=== PATIENT | female | born 1995 | race Caucasian/White ===

== ENCOUNTER 2024-04-05 20:25 | Observation (INO) | payer OTHER, SELFPAY ==
[2024-04-05 20:31] VITALS: BP 137/71; PULSE 100; RESP 20; TEMP 36.9; O2SAT 99; BMI 20.4
--- NOTE | 2024-04-05 20:33 | ED_ITS ---
HPI - General Adult General Time Seen by Provider: 20:33 Date Seen: 04/05/24 Chief complaint: Abdominal Pain Stated complaint: Abdominal pain Time Seen by Provider: 04/05/24 20:26 Source: patient and RN notes reviewed Mode of arrival: ambulatory Limitations: no limitations History of Present Illness HPI narrative: This 28-year-old female is ambulatory into the ED accompanied by her mom with sudden onset of severe upper abdominal pain, is radiating around the abdomen into her back. She had soup tonight for dinner, went for a walk with a dogs, went to lay on the floor afterwards and had excruciating pain developed. She feels nauseated, pain is coming in waves. Pain just started within the last hour. She has had no prior abdominal surgeries. She is on oral contraceptives. There is family history of gallbladder disease but no family history of kidney stones. Patient has had no prior history of kidney stones or abdominal issues. 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 Pain is significant. No associated urinary or diarrheal symptoms at this time. Had softer stool before this started. Will usually have softer stools baseline, usually goes daily. Related Data Home Medications ?Medication ?Instructions ?Recorded ?Confirmed bupropion HCl 150 mg 24 hr tablet, 150 mg PO DAILY 06/18/23 06/18/23 extended release escitalopram oxalate 10 mg tablet 10 mg PO DAILY 06/18/23 04/05/24 norethindrone 1.5 mg-ethinyl 1 tab PO DAILY 06/18/23 04/05/24 estradiol 30 mcg(21)/iron 75 mg(7) tablet (Patricia Fe 1.5/30 (28)) escitalopram oxalate 5 mg tablet 5 mg PO DAILY 04/05/24 04/05/24 Allergies Allergy/AdvReac Type Severity Reaction Status Date / Time oxycodone (From Percocet) AdvReac Intermediate Nausea/Vomi Verified 04/05/24 20:34 ting Review of Systems Status of ROS: Reports: 6 or more systems reviewed and unremarkable except as noted in History and below PFSH PFSH Social History Smoking Status: Never smoker Do you use any of these nicotine containing products: None How often do you have a drink containing alcohol: never How often do you have six or more drinks on one occasion: Never AUDIT-C Alcohol total score: 0 Non-prescribed substance use: denies use Exam Const: Vital Signs, click to edit/add: Vital Signs - 24 hr 04/05/24 20:31 04/05/24 20:37 04/05/24 23:58 Temperature 98.5 F 98.5 F Pulse Rate [Right Pulse Oximeter] 100 89 Respiratory Rate 20 20 Blood Pressure [Ri ght Upper Arm] 137/71 123/74 Pulse Oximetry 99 99 99 Oxygen Delivery Me thod Room Air Room Air This 28-year-old female is alert and interactive, in obvious discomfort but still very pleasant. Sclera clear, symmetrical facial function. Lungs clear, good air entry, no wheezing or crackles. CV slightly fast regular, no murmur, normal S1-S2, no S3-S4. Abdomen is soft, nondistended, no rebound or guarding, mild epigastric discomfort. Bowel sounds are present, do not feel any masses or organomegaly. Documenting provider has reviewed patient's vital signs: yes Course Course ED Course: We will try a some IV Toradol to see if that is sufficient for pain management, she has had nausea and vomiting with oxycodone. Will give her 4 mg IV Zofran for nausea control. Will look at a right upper quadrant ultrasound to see if this is biliary in nature. Will get CBC, comprehensive metabolic panel, lactate and lipase to look for underlying bowel pathology. Will out pancreatitis, biliary disease, urinary pathology, bowel pathology. If right upper quadrant ultrasound is not showing any etiology and evaluation warrants, they understand that we may need CT imaging of her abdomen. Reevaluation(s) Time of Reevaluation #1: 21:06 Reevaluation #1: Lactate mildly elevated at 2.9. Have ordered 500 mL normal saline for patient. Patient is going to ultrasound, pain is better at this time, she is not sure if she is on the down slope of a pain wave or if meds have started to work. Time of Reevaluation #2: 22:44 Reevaluation #2: Patient is having waves of pain come but it is certainly not as intense, feels the medication has helped. It is still in the epigastric area and goes up under ribs on both sides. We reviewed her ultrasound, there might be a gallbladder polyp verses some biliary sludge but her labs are otherwise normal. We do have CT imaging pending, await Radiology read to ensure we are not missing anything else. Time of Reevaluation #3: 23:30 Reevaluation #3: Have reviewed CT report, hepatomegaly but otherwise no acute pathology. Patient is on her knees, leaning forward, having severe abdominal pain again. She is requesting further pain management. Will try fentanyl and see if she tolerates this better. We will repeat a lactate to ensure that this is not going up. We really do not have causative etiology for her pain. She does state that the pain is in the epigastric area, radiates under her ribs and she is feeling it in her right shoulder blade now. Patient has had abdominal pain for about 4 hours or more now, do not have a definitive etiology and do not have pain controlled. She does have hepatomegaly but has normal labs. Additional Reevaluation(s): 12:05 a.m.: Penny is still having discomfort, improved over baseline but still does feel some significant pain, we discussed given another 25 mcg of fentanyl as she seems to have tolerated this. Consultations Consultation #1: Reviewed case with our surgeon on-call Dr. Marcus. She finds the hepatomegaly interesting in this slender patient, agrees that she is not convinced that this is biliary in nature. Have discussed my concern of pain out of proportion to exam, no identifiable etiology. Appendix was normal on her CT imaging as she specifically did ask me that. My a inclination is to have this patient stay for observation, can work on pain management and she can be followed clinically. Surgery can see her tomorrow if ongoing symptoms. Time: 23:34 Consultation #2: Paged night hospitalist service. 00:[address] Sorensen the hospitalist, accepts patient. Time: 00:06 Vital Signs Vital signs: Initial Vital Signs Temperature 98.5 F 04/05/24 20:31 Temperature Source Temporal Artery Scan 04/05/24 20:31 Pulse Rate 100 04/05/24 20:31 Respiratory Rate 20 04/05/24 20:31 Blood Pressure 137/71 04/05/24 20:31 Blood Pressure Mean 93 04/05/24 20:31 Blood Pressure Position Sitting 04/05/24 20:31 Pulse Oximetry 99 04/05/24 20:31 Oxygen Delivery Method Room Air 04/05/24 20:31 Vital Signs Temperature 98.5 F 04/05/24 20:31 Pulse Rate 100 04/05/24 20:31 Respiratory Rate 20 04/05/24 20:31 Blood Pressure 137/71 04/05/24 20:31 Pulse Oximetry 99 04/05/24 20:31 Oxygen Delivery Method Room Air 04/05/24 20:31 Temperature 98.5 F 04/05/24 23:58 Pulse Rate 89 04/05/24 23:58 Respiratory Rate 20 04/05/24 23:58 Blood Pressure 123/74 04/05/24 23:58 Pulse Oximetry 99 04/05/24 23:58 Oxygen Delivery Method Room Air 04/05/24 23:58 Medications Administered Medications: Discontinued Medications Generic Name Dose Route Start Last Admin Trade Name Anahi PRN Reason Stop Dose Admin Fentanyl 25 mcg 04/05/24 23:29 04/05/24 23:38 Fentanyl 100 Mcg/2 Ml Inj IVP 04/05/24 23:30 25 mcg ONCE ONE Administration Sodium Chloride 500 mls @ 500 mls/hr 04/05/24 21:06 04/05/24 22:10 0.9 % Sodium Chloride 500 Ml IV 04/05/24 22:05 Infused .Q1H ONE Infusion Ketorolac Tromethamine 15 mg 04/05/24 20:37 04/05/24 20:55 Ketorolac 15 Mg/Ml Inj IVP 04/05/24 20:38 15 mg ONCE ONE Administration Ondansetron HCl 4 mg 04/05/24 20:37 04/05/24 20:56 Ondansetron 2 Mg/Ml Inj IVP 04/05/24 20:38 4 mg ONCE ONE Administration Potassium Bicarbonate 25 meq 04/05/24 23:29 04/05/24 23:39 Potassium Bicarb 25 Meq Effervescent Tab PO 04/05/24 23:30 25 meq ONCE ONE Administration Medical Decision Making Lab Data Lab results reviewed: Yes I reviewed the patient's lab results Labs: Lab Results 04/05/24 04/05/24 Range/Units 20:56 23:30 WBC 9.38 (4.50-11.00) K/uL RBC 4.29 (4.00-5.20) m/uL Hgb 12.8 (12.0-16.0) gm/dL Hct 39.1 (33.0-51.0) % MCV 91 (80-100) fL MCH 30 (26-34) pg MCHC 33 (32-36) gm/dL RDW Coeff of Latasha 11.9 (11.5-15.5) % Plt Count 264 (140-440) K/uL Neut % (Auto) 48.4 (42.0-72.0) % Lymph % (Auto) 44.1 H (20-44) % Pope % (Auto) 6.6 (0.0-11.0) % Eos % (Auto) 0.5 (0.0-7.0) % Baso % (Auto) 0.3 (0.0-3.0) % Neut # (Auto) 4.53 (1.7-7.0) K/uL Lymph # (Auto) 4.10 H (0.90-2.90) K/uL Pope # (Auto) 0.60 (0.00-0.90) K/UL Eos # (Auto) 0.05 (0.00-0.50) K/uL Baso # (Auto) 0.03 (0.00-0.30) K/uL Abs Immat Gran (auto) 0.01 (0.00-0.30) K/uL Imm/Tot Granulo (auto) 0.1 % Sodium 136 (135-149) mmol/L Potassium 3.2 L (3.6-5.1) mmol/L Chloride 104 (96-114) mmol/L Carbon Dioxide 22 (20-32) mmol/L Anion Gap 10 (7-15) mEq/L BUN 6 (5-24) mg/dL Creatinine 0.6 (0.5-1.5) mg/dL Estimated Creat Clear 132.27 Estimated GFR 127 ml/min Glucose 123 H (60-115) mg/dL Lactate 2.9 H 0.7 (0.5-1.9) mmol/L Calcium 9.5 (8.4-10.6) mg/dL Total Bilirubin < 0.1 L (0.1-1.5) mg/dL Direct Bilirubin 0.0 (0.0-0.5) mg/dL AST 24 (12-35) U/L ALT 13 (4-35) U/L Alkaline Phosphatase 50 (40-150) U/L C-Reactive Protein 0.7 (0.5-1.0) mg/dL Total Protein 7.4 (6.0-8.3) g/dL Albumin 4.4 (3.3-5.0) g/dL Lipase 90 (23-300) U/L Urine Color Yellow (Yellow) Urine Appearance Clear (Clear) Urine pH >= 9.0 H (5.0-8.5) Ur Specific Kittrell 1.015 (1.000-1.030) Urine Protein 2+ A (Negative) Urine Glucose (UA) Negative (Negative) Urine Ketones Negative (Negative) Urine Blood Negative (Negative) Urine Nitrite Negative (Negative) Urine Bilirubin Negative (Negative) Urine Urobilinogen 0.2 (0.2-1.0) Ur Leukocyte Esterase Negative (Negative) Urine RBC 0-2 (0-2) Urine WBC 0-2 (0-5) Ur Squamous Epith Cells Few (None-Few) Urine Bacteria None (None) Imaging Data US - abdomen: Attestation: I have reviewed the pertinent imaging results. Radiologist's impression: Patient: PENNY LORA Facility:?[facility] Patient ID:?[id number] Site Patient ID:?[id number]. Site :?[id number] Study:?US-Abdomen ABD LIMITED [facility]-04/05/2024 9:33:10 PM Ordering Physician:Missy Ford Final Report: INDICATION: Right upper quadrant abdominal pain. TECHNIQUE: Ultrasound abdomen limited. Sonographic images of the right upper quadrant were obtained using arredondo-scale and color Doppler images. COMPARISON: None. FINDINGS: Liver: Normal in size and echotexture. No suspicious masses. No intrahepatic biliary ductal dilatation. Gallbladder: Focal area of echogenicity along the gallbladder wall. No stones. Normal wall thickness. No pericholecystic fluid. Negative sonographic Stone`s sign. Common bile duct: 3 mm. Pancreas: Unremarkable. Right kidney: Normal in size. Normal echotexture and cortex. No suspicious masses or hydronephrosis. Vasculature: Proximal abdominal aorta and IVC are unremarkable. IMPRESSION: 1. Focal area of echogenicity along the gallbladder wall, which may represent a small polyp versus tumefactive sludge. 2. Otherwise unremarkable right upper quadrant ultrasound. Dictated by Oli Bagley MD @ 04/05/2024 10:04:36 PM (Electronic Signature) CT scan - abdomen: Attestation: I have reviewed the pertinent imaging results. Radiologist's impression: Patient: PENNY LORA Facility:?[facility] Patient ID:?[id number] Site Patient ID:?[id number]. Site :?1995 Study:?CT-Abdomen/Pelvis W ISOVUE 370-04/05/2024 10:44:04 PM Ordering Physician:Missy Ford Final Report: INDICATION: Severe upper abdominal pain. TECHNIQUE: CT abdomen and pelvis acquired with 64 cc Isovue 370 IV contrast. COMPARISON: Limited abdominal ultrasound 04/05/2024. FINDINGS: Lower chest: Unremarkable. Liver: Enlarged liver. No suspicious masses. Gallbladder and bile ducts: Unremarkable. No stones or inflammation. No biliary ductal dilatation. Spleen: Unremarkable. Normal in size. No masses. Adrenal glands: Unremarkable. No nodules. Pancreas: Unremarkable. No mass or inflammation. Kidneys: Unremarkable. No suspicious masses, stones, or hydronephrosis. GI tract: Unremarkable. Normal in caliber. No evidence of obstruction. Normal appendix. Lymph nodes: No lymphadenopathy. Vasculature: Unremarkable. Omentum/Peritoneum/Abdominal Wall: Unremarkable. No free air or significant free fluid. Pelvis: Unremarkable. Bones: Unremarkable for age. IMPRESSION: 1. Hepatomegaly. 2. Otherwise no acute abdominal or pelvic abnormality. Please note that all CT scans at this facility use dose modulation, iterative reconstruction, and/or weight-based dosing when appropriate to reduce radiation dose to as low as reasonably achievable. Dictated by Oli Bagley MD @ 04/05/2024 11:12:59 PM (Electronic Signature) Discharge Plan Discharge Clinical Impression: Abdominal pain, epigastric
[2024-04-05 20:37] VITALS: O2SAT 99
--- NOTE | 2024-04-05 20:38 | CRLHL7_ITS ---
For Patients: As a result of the Century Cures Act, medical imaging exams and procedure reports are released immediately into your electronic medical record. You may view this report before your referring provider. If you have questions, please contact your health care provider. INDICATION: Right upper quadrant abdominal pain. TECHNIQUE: Ultrasound abdomen limited. Sonographic images of the right upper quadrant were obtained using arredondo-scale and color Doppler images. COMPARISON: None. FINDINGS: Liver: Normal in size and echotexture. No suspicious masses. No intrahepatic biliary ductal dilatation. Gallbladder: Focal area of echogenicity along the gallbladder wall. No stones. Normal wall thickness. No pericholecystic fluid. Negative sonographic Stone`s sign. Common bile duct: 3 mm. Pancreas: Unremarkable. Right kidney: Normal in size. Normal echotexture and cortex. No suspicious masses or hydronephrosis. Vasculature: Proximal abdominal aorta and IVC are unremarkable. IMPRESSION: 1. Focal area of echogenicity along the gallbladder wall, which may represent a small polyp versus tumefactive sludge. 2. Otherwise unremarkable right upper quadrant ultrasound. Dictated by Oli Bagley MD @ 04/05/2024 10:04:36 PM (Electronically Signed)
--- OUTSIDE RECORDS SUMMARY | 2024-04-05 20:45 | XMS_ITS | Continuity of Care Document ---
Author Organization [facility] Address [address] [address] [place] [address] Phone Care Team Providers Care Stock Tracer Name Role Phone Jerome MATHEWS, Magalie Unavailable Unavailable Medications Medication Instructions Dosage Effective Dates (start - stop) Status Comments omeprazole 40 mg capsule,delayed release take 1 capsule (40MG) by oral route every day before a meal 40 MG - Active Probiotic Colon Care 1.5 billion cell capsule take 1 capsule o by oral route every day - Active Veltin 1.2 %-0.025 % Topical Gel apply by topical route every day to the affected area(s) at bedtime 0.00 - Active Procedures Procedure Date Offic Cons New/estab Mod Routine Serum Collection Bld Ct; Hg/pltlt Ct Auto/compl 13 Sed Rate, Erythrocyte; Auto C-reactive Prot Comp Metabolic Panel Iron Iron Binding Capacity Ferritin Results Test Name Date and Time Measure Units Reference Range Abnormal Flag Status Commen ts Panel Description: Calprotectin, Fecal Final Calprotectin, Fecal 40 Final *Date Ordered 01/05/2013 Final Advance Directives Directive Yes / No Effective Date File Name No Information Encounters Encounter Description Practice Location Reason(s) For Visit Diagnoses Date Provider Providers Copied on Encounter [facility], [address] [address], [place], [place], [id number], [place] tel:[phone] [facility] No Information Jan-0 3 Jerome Mejias. [address] [facility] [address], [place], [place], [id number] , [place]. tel:[phone] Offic Cons New/estab Mod [facility], [address] [address], [place], [place], [id number], [place] [phone] [facility] Nausea (chief complaint) Abdominal pain (chief complaint) Nausea AlonePeriumbilic Pain 3 Jerome Mejias. [address] [facility] [address], [place], [place], [id number] , [place]. [phone] Referring Provider: Willa Layton [facility], [address] [place] [address], [place], [address]. tel:[phone] Family History Family Member Type Diagnosis Age At Onset First degree family history Problem (finding) No history of Colon Rectal Cancer First degree family history Problem (finding) No Family history of No history of Colon Polyps First degree family history Problem (finding) No history of Ulcerative Colitis First degree family history Problem (finding) No history of Crohn's Payers Payer name Insurance type Covered constitution party ID Authoriza tion(s) Blue Cross Of [facility] [id number] Social History Type Description Quantity Date Captured Comments Sex Female Smoking Status No Information Chief Complaint And Reason For Visit No Information Reason For Referral Reason For Referral No Information History Of Present Illness Encounter Date Complaint History Of Prese nt Illness No Information Functional Status Date Functional Assessmen t No Information Instructions Date Instruction Additional Infor mation No Information Assessments Type Assessment Date No Information Patient Care Teams Name Effective Dates (start - stop) Status Members No Information
--- OUTSIDE RECORDS SUMMARY | 2024-04-05 20:45 | XMS_ITS | Continuity of Care Document ---
Author Organization [facility] Address [address] [address] [place] [address] Phone Care Team Providers Care Window Sash Installer Name Role Phone Jerome MATHEWS, Magalie Unavailable [...] Encounter [facility], [address] [address], [place], [place], [id number], [place] tel:[phone] Pediatric [facility] No Information Jan-0 3 Jerome Mejias. [address] [facility] [address], [place], [place], [id number] , [place]. [phone] Offic Cons New/estab Mod [facility], [address] [address], [place], [place], [id number], [place] [phone] Pediatric [facility] Nausea (chief complaint) Abdominal pain (chief complaint) Nausea AlonePeriumbilic Pain 3 Jerome Mejias. [address] [facility] [address], [place], [place], [id number] , [place]. [phone] Referring Provider: Willa Layton [facility], [address] [place] [address], [place], [address]. tel:[phone] Family History Family Member Type Diagnosis Age At Onset First degree family history Problem (finding) No history of Colon Rectal Cancer First degree family history Problem (finding) No Family history of No history of Colon Polyps First degree family history Problem (finding) No history of Ulcerative Colitis First degree family history Problem (finding) No history of Crohn's Payers Payer name Insurance type Covered green party ID Authoriza tion(s) Blue Cross Of [facility] [id number] Social History Type Description Quantity Date Captured [...]
--- OUTSIDE RECORDS SUMMARY | 2024-04-05 20:45 | XMS_ITS | Clinical Summary ---
Author Organization [facility] Address [place], [place] [address] Care Team Providers Care Jumpbasting Collar Baster Name Role Phone Juanita Hodges NP Primary Care Provider [phone] Allergies Active Allergy Reactions Criticality Noted Date Comments Bupropion Hives 06/17/2023 Venlafaxine Hallucinations 10/07/2023 Oxycodone-Acetaminophen Vomiting 07/18/2020 Medications Medication Sig Dispensed Refills Start Date End Date Status escitalopram oxalate (LEXAPRO) 5 mg tabletIndications:Anx iety and depression TAKE 1 TABLET BY MOUTH EVERY DAY WITH 10 MG FOR TOTAL OF 15 MG DAILY 90 Tablet 3 10/16/2023 Active escitalopram oxalate (LEXAPRO) 10 mg tabletIndications:Anx iety and depression TAKE 1 TABLET BY MOUTH DAILY WITH 5 MG FOR A TOTAL OF 15 MG DAILY 90 Tablet 3 10/16/2023 Active norethindrone-e.estra diol-iron (MIKI FE 1.5/30, 28, ORAL) Active Active Problems Problem Noted Date Diagnosed Date Pap smear for cervical cancer screening 08/29/19 23 Overview (08/28/2022): 07/2022 NIL Plan: Pap/HPV due 07/2025 Anxiety state, unspecified 12/28/2008 Encounters Date Type Department Care Team Description 03/01/[place] [facility] [place] [address] [place] [address] Thanh Medina MD Surgery Scheduled 02/26/2024 [place] [facility] [place] [address] [place] [address] Thanh Medina MD Questions 02/20/2024 3:30 PM CDT Office Visit [facility] [address] [place] [phone] Thanh Medina MD Throat Problem (Tonsillitis issues ongoing since Jun, no strep. Sore throat. ) 02/20/2024 Travel 02/17/2024 Travel 01/21/2024 2:50 PM CDT Office Visit [facility] [address] [place] [address] Katherine Pack DO Pharyngitis (Ongoing tonsillitis and strep for 7 months.); Fatigue (Ongoing fatigue for 1 year, determined it is not related to lexapro, would like thyroid testing due to genetic factors) 01/21/2024 Travel 01/13/2024 8:05 AM CDT Office Visit [facility] [address] [facility] [address] [place] [address] Jennifer Arango MD Throat Problem (Sore throat and painful tonsils since 01/09) 01/13/2024 Travel 01/11/2024 12:30 PM CDT Office Visit [facility] [address] [place] [address] Belgica Wade MD Pharyngitis (Sore throat started last night with sinus pressure, body aches, and painful swallowing. Denies other symptoms or concerns.) 01/11/2024 Travel 01/07/2024 9:35 AM CDT E-Visit [facility] [address] [place] [phone] Juanita Hodges, [employer] eVisit for Vaginal Discharge / Irritation from Last 3 Months Immunizations Name Administration Dates Next Due AMB Influenza, IIV4 PF (=>6 mos Flulaval,Fluzone Fluarix)(Flu Clinic Only) 02/23/2020 COVID-19 vaccine (Moderna 100mcg/0.5mL) PF, MDV 09/13/2020,08/16/2020 DTaP 12/13/2002, 9,04/17/1998,02/01,1997 HIB-HepB (Comvax) 09/04/1998,02/01/1998,10/17/18 98 HPV 9 (Gardasil 9) 10/08/2016,05/07/2016, 016 Hep A, Ped/adol, 3 Dose 06/23/2003,12/13/2002 Hep B (Hepatitis B (Adult) R ecombinant Adjuvanted) 01/01/2024 Hepatitis A (Peds) 06/23/2003,12/13/2002 INFLUENZA, IIV3 PF (AGE >= 6 MO) 01/01/2024,1006/2011,01/30/2009 Inactivated Polio Vaccine 12/13/2002,02/01/1998, 1997 Influenza, IIV3 (Age >=3 years) 02/09/2015 Influenza, IIV4 02/13/2021,04/20/2019 Influenza, IIV4 (=>6mos) MDV 02/18/2018,02/14/20 17 Influenza,CCIIV4 PRESERV FREE 03/15/2023, 022 MENINGOCOCCAL VACCINE 2 VIAL 2MO-55YO (MENVEO) 05/07/2016 MMR 12/13/2002,03/05/1999 Meningococcal Vaccine (Menactra) 12/06/2008 Oral Polio Vaccine 03/05/1999 Td (Age >=7 Years) 05/13/2019 Tdap 09/04/2018,12/06/2008 Typhoid (injectable) 06/29/2007 Varicella Vaccine 06/29/2007,09/04/1998 Family History Medical History Relation Name Comments Hypothyroidism Maternal Grandmother Depression Mother Hypothyroidism Mother Depression Sister Relation Name Status Comments Father Alive Maternal Grandmother Mother Alive Sister Alive Social History Tobacco Use Types Packs/Day Years Used Date Smoking Tobacco: Never Smokeless Tobacco: Never Tobacco Cessation:Counseling Given: Yes Alcohol Use Standard Drinks/Week Comments Yes 1 (1 standard drink = 0.6 oz pur e alcohol) once in a while Humiliation, Afraid, Rape, and Kick questionnair e Answer Date Recorded Fear of Current or Ex-Partner No Emotionally Abused No 05/13/2019 Physically Abused No 05/13/2019 Sexually Abused No 05/13/2019 PHQ-2 Answer Date Recorded PHQ-2 TOTAL SCORE 1 10/16/2023 Social Connections Answer Date Recorded Do you often feel lonely or isolated from those around you? 0 10/07/2023 Financial Resource Strain Answer Date R ecorded Difficulty of Paying Living Expenses 3 10/07/2023 Difficulty of Paying Living Expenses Not on file 10/07/2023 Food Insecurity Answer Date Recorded Do you worry your food will run out before you are able to buy more? 1 10/07/2023 Transportation Needs Answer Date Record ed Does lack of transportation keep you from medica l appointments? 1 10/07/2023 Does lack of transportation keep you from work, meetings or getting things that you need? 1 10/07/2023 Housing Stability Answer Date Recorded What is your housing situation today? 1 10/07/2023 Sex and Gender Information Value Date Recorded Sex Assigned at Female 10/09/2020 9:22 AM CDT Gender Identity Not on file Sexual Orientation Not on file Obstetrics History Para Term AB IAB SAB Ectopic Multiple Livin g Live Births 0 0 0 0 0 0 0 0 0 0 0 Last Filed Vital Signs Vital Sign Reading Time Taken Comments Blood Pressure 108/72 01/21/2024 2:51 PM CDT Pulse 75 01/21/2024 2:51 PM CDT Temperature 37.3 C (99.1 F) 01/21/2024 2:51 PM CDT Respiratory Rate 18 01/13/2024 8:09 AM CDT Oxygen Saturation 98% 01/21/2024 2:51 PM CDT Inhaled Oxygen Concentration - - Weight 62.6 kg (138 lb) 01/21/2024 2:51 PM CDT Height 169.3 cm (5' 6.65) 08/02/2022 7:15 AM CD T Body Mass Index 21.84 08/02/2022 7:15 AM CDT Plan of Treatment Upcoming Encounters Date Type Department Care Team (Latest Contact Info) Description 05/18/2024 8:20 AM CODING QUALITY COORDINATOR Preop Visit [facility] [address] [place] [phone] Juanita Hodges NP [address] [place] [address] 05/27/2024 8:08 AM CODING QUALITY COORDINATOR Hospital Encounter [address] [address] Thanh Medina MD [address] [place] [address] 05/27/2024 8:08 AM CODING QUALITY COORDINATOR - 05/27/2024 9:04 AM CODING QUALITY COORDINATOR Surgery [address] [address] Thanh Medina MD [address] [place] [address] TONSILLECTOMY [address] Scheduled Procedures Name Priority Associated Diagnoses Date/Ti me TONSILLECTOMY Elective Recurrent streptococcal pharyngitis 05/27/2024 8:08 AM CODING QUALITY COORDINATOR Health Maintenance Due Date Last Done Comments HIV for age 15-65 2012 Hepatitis C screening for age 18-79 09/03/2015 BMI (ht and wt on same day) for age 18+ 08/03/2023 08/02/2022, 01/01/2021, 11/27/2020, Additional history exists Influenza for age 9-49 01/11/2024 , 03/15/2023, 03/03/2022, Additional history exists Depression screening for age 12+ 10/15/2024 10/16/2023, 10/16/2023, 06/24/2023, Additional history exists Pap test for age 21-65 08/02/2025 08/02/2022, 2019 Tetanus booster 05/13/2029 05/13/2019, 04/10/2018, 12/06/2008 HPV series for age 9-26 Completed 10/09/19 17, 05/07/2016, 01/08/2016 Tdap Completed 09/04/2018, 12/06/2008 COVID-19 vaccine series Completed 02/18/20 24, 03/15/2023, 03/03/2022, Additional history exists Pneumococcal series for age 6-64 Aged Out No longer eligible based on patient's age to complete this topic Procedures Procedure Name Priority Date/Time Associated Diagnosis Comments FERRITIN Routine 01/21/2024 3:21 PM CDT Fatigue, unspecified type Vegetarian diet VITAMIN B12 Routine 01/21/2024 3:21 PM CDT Fatigue, unspecified type Vegetarian diet TSH WITH REFLEX Routine 01/21/2024 3:21 PM CDT Fatigue, unspecified type STREP A PCR Routine 01/13/2024 9:27 AM CDT Sore throat CBC WITH AUTO DIFFERENTIAL STAT 01/13/2024 8:30 AM CDT Sore throat CBC WITH AUTO DIFFERENTIAL STAT 01/13/2024 8:30 AM CDT Sore throat HETEROPHILE STAT 01/13/2024 8:30 AM CDT Sore throat THROAT RAPID STREP ONLY CLINIC STAT 01/13/2024 8:06 AM CDT Sore throat CREATININE,ISTAT STAT 01/11/2024 1:2 9 PM CDT Sore throat COVID-19 MOLECULAR Routine 01/11/2024 1 :09 PM CDT Sore throat THROAT RAPID STREP ONLY CLINIC Routine 01/11/2024 12:40 PM CDT Sore throat LAYOUT ARTIST THIN PREP PAP SCREEN IMAGED Routine 08/02/2022 7:20 AM CDT Pap smear for cervical cancer screening from Last 3 Months or Most Recently Relevant to Health Maintenance Results * TSH WITH REFLEX (01/21/2024 3:21 PM CDT) TSH 1.38 0.27 - 4.20 uIU/mL 01/22/2024 7:07 AM CDT [facility] Blood BLOOD SPECIMEN / Unknown Venipuncture / Unknown 01/21/2024 3:21 PM CDT 01/21/2024 3:21 PM CDT [facility] - 01/22/2024 7:07 AM CDT In Adults, TSH values between 5.00 and 10.00 uIU/ml do not necessarily indicate the presence of Hypothyroidism. Correlation with clinical findings such as presence of goiter and/or Thyroperoxidase (TPO) Antibody may be helpful. For more information please refer to INDIRA 2004; 291: 228-238. Katherine Pack DO CHEMISTRY Performing Organization Address City/[facility]/ZIP Co de Phone Number [facility] [address] [place] [address], * FERRITIN (01/21/2024 3:21 PM CDT) FERRITIN 78.4 15.0 - 150.0 ng/mL 01/22/2024 7:07 AM CDT [facility] Blood BLOOD SPECIMEN / Unknown Venipuncture / Unknown 01/21/2024 3:21 PM CDT 01/21/2024 3:21 PM CDT Katherine Pack DO CHEMISTRY [facility] [address] [place] [address], * VITAMIN B12 (01/21/2024 3:21 PM CDT) VITAMIN B12 367 232 - 1,245 pg/mL 01/22/2024 7:07 AM CDT [facility] Blood BLOOD SPECIMEN / Unknown Venipuncture / Unknown 01/21/2024 3:21 PM CDT 01/21/2024 3:21 PM CDT Narrative [facility] - 01/22/2024 7:07 AM CDT Biotin supplements may cause clinically significant interference for this test assay. If interference is suspected, it is strongly recommended that biotin is discontinued for at least one week prior to retesting. Katherine Pack DO CHEMISTRY Performing Organization Address City/[facility]/ZIP Co de Phone Number [facility] [address] [address], * STREP A PCR (01/13/2024 9:27 AM CDT) [facility] A STREP Negative 01/13/2024 5:07 PM CDT [facility] Throat SPECIMEN FROM THROAT / Unknown Non-Blood / Unknown 01/13/2024 9:27 AM CDT 01/13/2024 9:27 AM CDT Jennifer Mendez MD [facility] OBIOLOGY Performing Organization Address [facility]/ZIP Co de Phone Number [facility] [address] [place] [address], [place] * (ABNORMAL) CBC WITH AUTO DIFFERENTIAL (01/13/2024 8:30 AM CDT) [facility] WHITE BLOOD COUNT 18.1(H) 4.5 - 11.0 thou/cu mm 01/13/2024 8:48 AM CDT [facility] RED BLOOD COUNT 3.98(L) 4.00 - 5.20 mil/cu mm 01/13/2024 8:48 AM CDT [facility] HEMOGLOBIN 12.3 12.0 - 16.0 g/dL 01/13/2024 8:48 AM CDT [facility] HEMATOCRIT 36.6 33.0 - 51.0 % 01/13/2024 8:48 AM CDT [facility] MCV 92 80 - 100 fL 01/13/2024 8:48 AM CDT [facility] MCH 30.9 26.0 - 34.0 pg 01/13/2024 8:48 AM CDT [facility] MCHC 33.6 32.0 - 36.0 g/dL 01/13/2024 8:48 AM CDT [facility] RDW 12.7 11.5 - 15.5 % 01/13/2024 8:48 AM CDT [facility] PLATELET COUNT 218 140 - 440 thou/cu mm 01/13/2024 8:48 AM CDT [facility] MPV 10.0 6.5 - 11.0 fL 01/13/2024 8:48 AM CDT [facility] % NEUT 85.0 % 01/13/2024 8:48 AM CDT [facility] % LYMPH 8.5 % 01/13/2024 8:48 AM CDT [facility] % MONO 6.3 % 01/13/2024 8:48 AM CDT [facility] % EOS 0.1 % 01/13/2024 8:48 AM CDT [facility] % BASO 0.1 % 01/13/2024 8:48 AM CDT [facility] ABSOLUTE NEUTROPHILS 15.4(H) 1.7 - 7.0 thou/cu mm 01/13/2024 8:48 AM CDT [facility] ABSOLUTE LYMPHOCYTES 1.5 0.9 - 2.9 thou/cu mm 01/13/2024 8:48 AM CDT [facility] ABSOLUTE MONOCYTES 1.1(H) <0.9 thou/cu mm 01/13/2024 8:48 AM CDT [facility] ABSOLUTE EOSINOPHILS 0.0 <0.5 thou/cu mm 01/13/2024 8:48 AM CDT [facility] ABSOLUTE BASOPHILS 0.0 <0.3 thou/cu mm 01/13/2024 8:48 AM CDT [facility] Blood BLOOD SPECIMEN / Unknown Venipuncture / Unknown 01/13/2024 8:30 AM CDT 01/13/2024 8:37 AM CDT Jennifer PANDA [address] [address] * HETEROPHILE (01/13/2024 8:30 AM CDT) HETEROPHILE Negative Negative 01/13/2024 8:47 AM CDT [facility] Blood BLOOD SPECIMEN / Unknown Venipuncture / Unknown 01/13/2024 8:30 AM CDT 01/13/2024 8:37 AM CDT Jennifer PANDA Performing Organization Address City/[facility]/ZIP Co de Phone Number [address] [address] * THROAT RAPID STREP ONLY CLINIC [63[address].0] - age 18+ (01/13/2024 8:06 AM CDT) Only the most recent of2 resultswithin the time period is included. THROAT RAPID STREP A ANTIGEN Negative 01/13/2024 8:23 AM CDT [facility] Throat SPECIMEN FROM THROAT / Unknown Non-Blood / Unknown 01/13/2024 8:06 AM CDT 01/13/2024 8:13 AM CDT Casey Barrios MD MICROBIOLOGY [address] [address] * CREATININE,ISTAT (01/11/2024 1:29 PM CDT) CREATININE, POCT 0.60 0.57 - 1.11 mg/dL 01/11/2024 1:31 PM CDT [facility] eGFR >90 >90 mL/min/1.7 3m2 01/11/2024 1:31 PM CDT [facility] Comment:As of 2021, eG FR is calculated by the CKD-EPI creatinine equation without race adjustment. eGFR can be influenced by muscle mass, exercise, and diet. The reported eGFR is an estimation only and is only applicable if the renal function is stable. Blood BLOOD SPECIMEN / Unknown 01/11/2024 1:29 PM CDT 01/11/2024 1:31 PM CDT Belgica Wade MD CHEMISTRY Performing Organization Address City/[facility]/ZIP Co de Phone Number [facility] [address] [place] [address] * COVID-19 MOLECULAR (01/11/2024 1:09 PM CDT) Pathologist [facility] COVID 19 [facility] MOLECULAR Negative Negative 01/11/2024 10:41 PM CDT [facility]- NTRAL LABORATORY TESTING LABORATORY [facility] 01/11/2024 10:41 PM CDT [facility] Comment:Specimen submitted t o [facility] for testing. Other SPECIMEN FROM NASAL FOSSAE / Unknown Non-Blood / Unknown 01/11/2024 1:09 PM CDT 01/11/2024 2:26 PM CDT Narrative [facility]-CENTRAL LABORATORY - 01/11/2024 10:41 PM CDT All PCR tests are subject to false negative result due to variability in viral load and collection technique. A negative result does not rule out a SARS-CoV-2 infection. Clinical correlation required. Belgica Wade MD MICROBIOLOGY Performing Organization Address City/[facility]/ZIP Co de Phone Number [facility]-C[facility]TRAL LABORATORY [address] [place] [address], * LAYOUT ARTIST THIN PREP PAP SCREEN IMAGED (08/02/2022 7:20 AM CDT) Case Report Gynecologic Cytology Report Case: [id number] Authorizing Provider: Juanita Hodges NP Collected: 08/02/2022 0720 Ordering Location: [facility] Received: 08/02/2022 0845 [facility] First Screen: Noreen Simons Specimen: LAYOUT ARTIST ThinPrep Vial Screening, Cervical 08/28/2022 1:02 PM CDT [facility]AL LAB[facility]ORY INTERPRETATION/ RESULT NEGATIVE FOR INTRAEPITHELIAL LESION OR MALIGNANCY (NIL) (none) 08/28/2022 1:02 PM CDT [facility] [employer] [facility]-C ENTRAL LABORATORY IMEN ADEQUACY Satisfactory for evaluation Endocervical component present 08/28/2022 1:02 PM CDT [facility]AL LABORATORY Date of LMP 06/18/2022 08/28/2022 1:02 PM CDT [facility] ENTRAL LABORATORY Last Pap Date 05/13/19 08/28/2022 1:02 PM CDT [facility] [employer] LABORATORY-C ENTRAL LABORATORY Last Pap Result NIL 1:02 PM CDT [facility] [employer] [facility]-C ENTRAL LABORATORY Abnormal Pap or [place] Bx in last 5 years No 08/28/2022 1:02 PM CDT [facility] [employer] [facility]-C ENTRAL LABORATORY Menstrual Status Regular Periods 08/28/2022 1:02 PM CDT [facility] [employer] LABORATORY- ENTRAL LABORATORY [place] Bx Done Today No 08/28/2022 1:02 PM CDT [facility] [employer] [facility] ENTRAL LABORATORY Additional Information None given 08/28/2022 1:02 PM CDT [facility] [employer] [facility]-C ENTRAL LABORATORY Comment: Cytology is screened at [facility], Central Laboratory - [address], [place] [address] and [facility] - [address], [place] [address] and [facility] - [address] [place] [address] Interpreted at [facility] - [address] [place], [place] [address] [place] [address] Automated Review Successful 08/28/2022 1:02 PM CDT [facility] ENTRAL LABORATORY Comment:Specimen processed s uccessfully by automated towel weaver device, ThinPrep Imaging System, [employer] Note The pap test is a screening technique, not a diagnostic procedure. It is used primarily to screen for squamous cancers and precursor lesions. Published studies have shown that it is subject to both false negative and false positive results. The pap test should not be used as the sole means to diagnose or exclude pre-malignant and malignant lesions. 08/28/2022 1:02 PM CDT [facility] ENTRAL LABORATORY Other (Cervical) Non-Blood / Unknown 08/02/2022 7:20 AM CDT 08/02/2022 8:45 AM CDT Juanita Hodges NP PATHOLOGY/CYTOLOGY [facility]CENTRAL LABORATORY [address] [place] [address], [place] from Last 3 Months or Most Recently Relevant to Health Maintenance Care Teams Jumpbasting Collar Baster Relationship Specialty Start Date End Date Juanita Hodges NP [address] [place] [address] PCP - General Nurse Practitioner - Family 10/10/20
[2024-04-05] MEDS: KETOROLAC 15 MG/ML inj IVP (20:55)
[2024-04-05] MEDS: ONDANSETRON 2 MG/ML inj 4 MG IVP (20:56)
[2024-04-05 21:02] LABS: Lactate* 2.9 mmol/L (0.5-1.9)
[2024-04-05 21:04] LABS: Basophils Absolute Auto 0.03 K/uL (0.00-0.30); Basophils Percent Auto 0.3 % (0.0-3.0); Eosinophils Absolute Auto 0.05 K/uL (0.00-0.50); Eosinophils Percent Auto 0.5 % (0.0-7.0); Hematocrit 39.1 % (33.0-51.0); Hemoglobin* 12.8 gm/dL (12.0-16.0); Immature Granulocytes Abs Auto 0.01 K/uL (0.00-0.30); Immature Granulocytes Pct Auto 0.1 %; Lymphocytes Percent Auto 44.1 % (20-44); Mean Corpuscular HGB Conc 33 gm/dL (32-36); Mean Corpuscular Hemoglobin 30 pg (26-34); Mean Corpuscular Volume 91 fL (80-100); Monocytes Percent Auto 6.6 % (0.0-11.0); Neutrophils Absolute Auto 4.53 K/uL (1.7-7.0); Neutrophils Percent Auto 48.4 % (42.0-72.0); Platelet Count* 264 K/uL (140-440); RDW Coefficient of Variation % 11.9 % (11.5-15.5); Red Blood Count 4.29 m/uL (4.00-5.20); White Blood Count* 9.38 K/uL (4.50-11.00)
[2024-04-05 21:05] LABS: Slide Review Reflex No
[2024-04-05 21:17] LABS: Albumin* 4.4 g/dL (3.3-5.0); Chloride* 104 mmol/L (96-114)
[2024-04-05 21:18] LABS: Potassium* 3.2 mmol/L (3.6-5.1); Sodium* 136 mmol/L (135-149)
[2024-04-05 21:20] LABS: Appearance Urine Clear (Clear); Bilirubin Urine Negative (Negative); Blood Urine Negative (Negative); Color Urine Yellow (Yellow); Creatinine* 0.6 mg/dL (0.5-1.5); Est. Creatinine Clearance* 132.27; Estimated Glomerular Filt Rate 127 ml/min; Glucose Urine Negative (Negative); Ketones Urine Negative (Negative); Leukocyte Esterase Urine Negative (Negative); Nitrite Urine Negative (Negative); Protein Urine 2+ (Negative); Specific Gravity Urine 1.015 (1.000-1.030); Urobilinogen Urine 0.2 (0.2-1.0)
[2024-04-05 21:21] LABS: Alanine Aminotransferase* 13 U/L (4-35); Alkaline Phosphatase* 50 U/L (40-150); Anion Gap 10 mEq/L (7-15); Aspartate Amino Transferase* 24 U/L (12-35); Blood Urea Nitrogen* 6 mg/dL (5-24); Calcium* 9.5 mg/dL (8.4-10.6); Carbon Dioxide* 22 mmol/L (20-32); Glucose* 123 mg/dL (60-115); Lipase* 90 U/L (23-300); Total Protein* 7.4 g/dL (6.0-8.3)
[2024-04-05 21:24] LABS: Bilirubin Total* < 0.1 mg/dL (0.1-1.5); C Reactive Protein* 0.7 mg/dL (0.5-1.0)
[2024-04-05] MEDS: 0.9 % SODIUM CHLORIDE 500 ML 500 ML IV (21:40)
[2024-04-05 22:13] LABS: pH Urine >= 9.0 (5.0-8.5)
--- NOTE | 2024-04-05 22:18 | CRLHL7_ITS ---
For Patients: As a result of the Century Cures Act, medical imaging exams and procedure reports are released immediately into your electronic medical record. You may view this report before your referring provider. If you have questions, please contact your health care provider. INDICATION: Severe upper abdominal pain. TECHNIQUE: CT abdomen and pelvis acquired with 64 cc Isovue 370 IV contrast. COMPARISON: Limited abdominal ultrasound 04/05/2024. FINDINGS: Lower chest: Unremarkable. Liver: Enlarged liver. No suspicious masses. Gallbladder and bile ducts: Unremarkable. No stones or inflammation. No biliary ductal dilatation. Spleen: Unremarkable. Normal in size. No masses. Adrenal glands: Unremarkable. No nodules. Pancreas: Unremarkable. No mass or inflammation. Kidneys: Unremarkable. No suspicious masses, stones, or hydronephrosis. GI tract: Unremarkable. Normal in caliber. No evidence of obstruction. Normal appendix. Lymph nodes: No lymphadenopathy. Vasculature: Unremarkable. Omentum/Peritoneum/Abdominal Wall: Unremarkable. No free air or significant free fluid. Pelvis: Unremarkable. Bones: Unremarkable for age. IMPRESSION: 1. Hepatomegaly. 2. Otherwise no acute abdominal or pelvic abnormality. Please note that all CT scans at this facility use dose modulation, iterative reconstruction, and/or weight-based dosing when appropriate to reduce radiation dose to as low as reasonably achievable. Dictated by Oli Bagley MD @ 04/05/2024 11:12:59 PM (Electronically Signed)
[2024-04-05 22:32] LABS: RBC Urine 0-2 (0-2); Squamous Epithelial Cell Urine Few (None-Few); WBC Urine 0-2 (0-5)
[2024-04-05] MEDS: fentaNYL 100 MCG/2 ML inj 25 MCG IVP (23:38)
[2024-04-05] MEDS: POTASSIUM BICARB 25 MEQ EFFERVESCENT TAB PO (23:39)
[2024-04-05 23:40] LABS: Lactate* 0.7 mmol/L (0.5-1.9)
[2024-04-05 23:58] VITALS: BP 123/74; PULSE 89; RESP 20; TEMP 36.9; O2SAT 99
[2024-04-06] VITALS (7 sets, daily range): BP systolic 111–133; BP diastolic 70–80; PULSE 78–94; RESP 16–20; TEMP 36.5–37.1; O2SAT 99–100; BMI 21.4
--- NOTE | 2024-04-06 02:03 | W.PM.TELEH&P ---
Telehealth- H&P: HPI History of Present Illness Date Seen: 04/06/24 Chief complaint: Abdominal pain Narrative: Penny Rivera is seen as an Interactive Telehealth visit. Penny Rivera is a 28 year old Female who presents to hospital with complaints of intractable abdominal pain. The patient was in her normal state of health. Earlier today she went [facility] and had a vegetable bowl. She did not experience any symptoms of diarrhea or nausea. However approximately 7 PM she developed intractable abdominal pain that was described as epigastric nonradiating. Due to the severity of her pain she presented to the emergency room. In the emergency room, she was noted to have mildly elevated lactic acid which eventually normalized after fluids. She underwent an ultrasound of the abdomen which showed mild hepatomegaly otherwise essentially normal study. She underwent subsequent CT scan of the abdomen with IV contrast which did not show any abnormality. Due to recurrence of her abdominal pain and the colicky nature, ER provider requested admission and observation. Patient describes epigastric pain. She does not take ibuprofen frequently. She takes 2 medications including Lexapro and control. She is sexually active but she takes her control religiously and her partner has a vasectomy. She has not had any other partners. Patient denies any other urinary or vaginal issues. Patient does have a history of anxiety for which she takes Lexapro. Otherwise she is a very healthy individual. She does not eat any meat for health reasons. She works for a local [employer]. She does not smoke cigarettes, does not do any illicit drugs. She does not engage in significant alcohol use. During physical exam, patient was noted to have tenderness in the epigastric area. The rest of her exam was completely benign. Review of Systems Status of ROS: Reports: 10 or more systems reviewed and unremarkable except as noted in History and below Const: Denies: fever, chills, change in weight or night sweats Cardio: Denies: chest pain or shortness of breath with exertion Resp: Denies: shortness of breath or wheezing GI: Reports: abdominal pain and nausea; Denies: vomiting or diarrhea : Denies: painful urination Musculo: Denies: back pain Psych: Denies: anxiety Allergy/Immuno: Denies: wheezing PFSH PFSH Social History Smoking Status: Never smoker Do you use any of these nicotine containing products: None How often do you have a drink containing alcohol: never How often do you have six or more drinks on one occasion: Never AUDIT-C Alcohol total score: 0 Non-prescribed substance use: denies use Meds Home Medications and Allergies Home Medications ?Medication ?Instructions ?Recorded ?Confirmed ?Type bupropion HCl 150 mg 24 hr tablet, 150 mg PO DAILY 06/18/23 06/18/23 History extended release escitalopram oxalate 10 mg tablet 10 mg PO DAILY 06/18/23 04/05/24 History norethindrone 1.5 mg-ethinyl 1 tab PO DAILY 06/18/23 04/05/24 History estradiol 30 mcg(21)/iron 75 mg(7) tablet (Patricia Fe 1.5/30 (28)) escitalopram oxalate 5 mg tablet 5 mg PO DAILY 04/05/24 04/05/24 History Allergies Allergy/AdvReac Type Severity Reaction Status Date / Time oxycodone (From Percocet) AdvReac Intermediate Nausea/Vomi Verified 04/05/24 20:34 ting Exam Narrative Exam Narrative: Physical Exam GENERAL: ?vital signs reviewed, well developed and nourished, in no distress HEENT: pupils are equal round and reactive to light, extraocular movements are grossly within normal limits and oral mucosa is moist. NECK: Supple without lymphadenopathy or thyromegaly according to nursing staff examination observation HEART: Regular rate and rhythm without any rubs, murmurs, or gallops. LUNGS: Clear to auscultation bilaterally with good air movement throughout ABDOMEN: Observation from nurse assisted exam, abdomen appears soft, tenderness in epigastric area, negative kruse, negative mcburney. EXTREMITIES: Strength and sensation is observed to be grossly within normal limits in the upper and lower extremities.? No focal strength deficit is observed. SKIN:? Observed warm and dry with color normal Const Vital Signs, click to edit/add: Vital Signs - 24 hr 04/05/24 20:31 04/05/24 20:37 04/05/24 23:58 Temperature 98.5 F 98.5 F Pulse Rate [Pulse Oximeter] Pulse Rate [Right Pulse Oximeter] 100 89 Respiratory Rate 20 20 Blood Pressure [Right Arm] Blood Pressure [Right Upper Arm] 137/71 123/74 Pulse Oximetry 99 99 99 Oxygen Delivery Method Room Air Room Air 04/06/24 00:29 04/06/24 00:29 04/06/24 00:38 Temperature 98.5 F 98.5 F Pulse Rate [Pulse Oximeter] 88 Pulse Rate [Right Pulse Oximeter] 89 Respiratory Rate 16 20 Blood Pressure [Right Arm] 133/75 Blood Pressure [Right Upper Arm] 123/74 Pulse Oximetry 100 100 Oxygen Delivery Method Room Air Room Air Common normals: no apparent distress and oriented x3 Exam limitations: no altered mental status Neuro Common normals: oriented x3 Hospitalist - H&P: Result Labs Labs: Short CBC 04/05/24 Range/Units 20:56 WBC 9.38 (4.50-11.00) K/uL Hgb 12.8 (12.0-16.0) gm/dL Hct 39.1 (33.0-51.0) % Plt Count 264 (140-440) K/uL BMP 04/05/24 20:56 Sodium 136 Potassium 3.2 L Chloride 104 Carbon Dioxide 22 BUN 6 Creatinine 0.6 Glucose 123 H Calcium 9.5 Liver Function 04/05/24 Range/Units 20:56 Total Bilirubin < 0.1 L (0.1-1.5) mg/dL Direct Bilirubin 0.0 (0.0-0.5) mg/dL AST 24 (12-35) U/L ALT 13 (4-35) U/L Alkaline Phosphatase 50 (40-150) U/L Albumin 4.4 (3.3-5.0) g/dL Urine 04/05/24 Range/Units 20:56 Urine Color Yellow (Yellow) Urine Appearance Clear (Clear) Urine pH >= 9.0 H (5.0-8.5) Ur Specific [place] 1.015 (1.000-1.030) Urine Protein 2+ A (Negative) Urine Glucose (UA) Negative (Negative) Assessment and Plan Assessment and plan (1) Abdominal pain, epigastric: Status: Acute (2) Dyspepsia: Status: Acute Plan This patient abdominal pain most likely is related to dyspepsia. I assume that this patient's abdominal pain is likely epigastric in origin. Her CT abdomen was negative for any intra-abdominal pathology. I will trial her on a GI cocktail which will provide her immediate relief with the lidocaine. Then I will provide her IV Protonix with then subsequent of oral Protonix in the morning. Will continue her on IV fluids. Will have her on a clear liquid diet. The cause of this patient dyspepsia is likely multifactorial. I assume that there was something related to her earlier food items she had consumed during lunch. In addition she does endorse eating excessive amount of spicy food. He does not take a lot of ibuprofen or Aleve or other NSAIDs. Although she did have a bowel movement 1 concern is that she may have some functional constipation. Unfortunately I was not able to see the CT scan but the radiology report did not comment on stool burden. Therefore after discussion with the patient, will trial her on a half of the GoLytely prep: In an effort to have clear bowels. Sure these were not the contributing factors. I had a very extensive discussion about diet options and causes of her symptoms. I educated herself as well as her mother who was present at the bedside. Telehealth Visit Today's History and Physical is provided via interactive telehealth by Dr. Joe Sorensen MD. Patient is located at [facility]. Provider is located at [facility]. Nursing staff assisted with the patient's examination. The visit being done today meets criteria for a telehealth visit and the patient or patient's parent and/or gaurdian is aware the visit is a telehealth visit. Camera Start Time 1 AM Camera End Time 1:45 AM Telehealth: Statement Statement Telehealth Visit: Today's History and Physical is provided via interactive telehealth by Joe Sorensen MD.? Patient is located at [facility].? Provider is located at [facility].? Nursing staff assisted with the patient's exam. The visit being done today meets criteria for a telehealth visit and the patient or patient?s parent/guardian is aware the visit is a telehealth visit.
[2024-04-06 02:22] LABS: Ur HCG Qualitative* Negative (Negative)
[2024-04-06] MEDS: PANTOPRAZOLE SODIUM 40 MG INJ IVP (02:57)
[2024-04-06] MEDS: PEG-3350 SODIUM CL/BICARB-KCL 4,000 ML SOLN 2000 ML PO (02:59)
[2024-04-06] MEDS: GI COCKTAIL (VISC LIDO/ANTACID) 30 ML PO (03:00)
[2024-04-06] MEDS: 0.9 % SODIUM CHLORIDE 1000 ml 1,000 ML 125 ML IV (03:11)
--- NOTE | 2024-04-06 06:58 | PC.NURSE ---
Pt alert and oriented x3. Afebrile. Pt reports 2/10 pain in lower abdomen, pain managed with PRN medications. Pt is up ad vania, tolerating a clear liquid diet, and voiding and having bowel movements. ?
--- NOTE | 2024-04-06 09:00 | CRLHL7_ITS ---
For Patients: As a result of the Century Cures Act, medical imaging exams and procedure reports are released immediately into your electronic medical record. You may view this report before your referring provider. If you have questions, please contact your health care provider. Indication: Abdominal pain Technique: Nuclear medicine hepatobiliary scan with gallbladder ejection fraction after the intravenous administration of 4.8 millicuries technetium 99 M Mebrofenin and 0.2 micrograms of CCK. STAT! Comparison: Right upper quadrant ultrasound 04/05/2024 Findings: Normal hepatic extraction and excretion of the radiopharmaceutical with prompt appearance of the common bile duct followed by the gallbladder and small bowel. Mild to moderate enterogastric reflux is noted. Visually mildly decreased gallbladder contraction is identified. Calculated gallbladder ejection fraction is 28 percent. Impression: 1. No acute findings. 2. Mild gallbladder dysfunction, most commonly caused by chronic cholecystitis. 3. [id number] enterogastric reflux, correlate for alkaline gastritis. Dictated by Jake Klein MD @ 04/06/2024 10:56:50 AM (Electronically Signed)
[2024-04-06 09:01] LABS: Lactate* 0.6 mmol/L (0.5-1.9)
[2024-04-06 09:06] LABS: Basophils Absolute Auto 0.01 K/uL (0.00-0.30); Basophils Percent Auto 0.2 % (0.0-3.0); Eosinophils Absolute Auto 0.01 K/uL (0.00-0.50); Eosinophils Percent Auto 0.2 % (0.0-7.0); Hematocrit 38.7 % (33.0-51.0); Hemoglobin* 12.5 gm/dL (12.0-16.0); Lymphocytes Absolute Auto 2.03 K/uL (0.90-2.90); Lymphocytes Percent Auto 30.8 % (20-44); Mean Corpuscular HGB Conc 32 gm/dL (32-36); Mean Corpuscular Hemoglobin 30 pg (26-34); Mean Corpuscular Volume 92 fL (80-100); Monocytes Percent Auto 6.5 % (0.0-11.0); Neutrophils Absolute Auto 4.12 K/uL (1.7-7.0); Neutrophils Percent Auto 62.3 % (42.0-72.0); Platelet Count* 226 K/uL (140-440)
[2024-04-06 09:08] LABS: Slide Review Reflex No
[2024-04-06 09:17] LABS: Albumin* 3.7 g/dL (3.3-5.0); Chloride* 107 mmol/L (96-114); Sodium* 138 mmol/L (135-149)
[2024-04-06 09:20] LABS: Alkaline Phosphatase* 51 U/L (40-150); Anion Gap 5 mEq/L (7-15); Aspartate Amino Transferase* 38 U/L (12-35); Bilirubin Total* 0.4 mg/dL (0.1-1.5); Blood Urea Nitrogen* 2 mg/dL (5-24); Carbon Dioxide* 26 mmol/L (20-32); Creatinine* 0.6 mg/dL (0.5-1.5); Est. Creatinine Clearance* 138.17; Estimated Glomerular Filt Rate 127 ml/min; Total Protein* 6.6 g/dL (6.0-8.3)
[2024-04-06 09:21] LABS: Alanine Aminotransferase* 27 U/L (4-35); Calcium* 8.8 mg/dL (8.4-10.6); Glucose* 82 mg/dL (60-115)
--- NOTE | 2024-04-06 12:58 | P.IMPN_ITS ---
Progress Note: A&P Assessment and plan (1) Abdominal pain, epigastric: Problem details: - atypical biliary colic vs gastritis - decreased gallbladder EF on HIDA scan, possible reflux - remains NPO - Dr. Marcus from General Surgery to see today, plan pending Status: Acute Plan - per above Subjective Date Seen: 04/06/24 Interval history: Penny was admitted to the hospital last night for severe epigastric abdominal pain. On admission, lactate elevated. Normal white count, LFTs, lipase. Imaging revealed hepatomegaly on CT scan, a focal area of echogenicity along gallbladder wall, polyp vs sludge. HIDA scan obtained this morning, EF 28%. Penny continues to have mild abdominal pain this morning, generalized. She has had no nausea or vomiting, has not eaten anything since admission. Exam Narrative: Exam Narrative: GEN: Alert and oriented, nontoxic HEENT: EOMIs bilaterally, no scleral icterus CV: RRR, No concerning murmurs, rubs, or gallops R: LCTA bilaterally without concerning wheezing Ab: Soft, mild discomfort with palpation throughout without rebound. No hepatomegaly by palpation, negative Murpyh's sign Ext: wwp, no concerning edema Skin: No jaundice, no concerning skin lesions or rashes on exposed skin Neuro: Nonfocal Psych: Appropriate Const: Vital Signs, click to edit/add: Vital Signs - 24 hr 04/05/24 20:31 04/05/24 20:37 04/05/24 23:58 Temperature 98.5 F 98.5 F Pulse Rate [Pulse Oximeter] Pulse Rate [Right Pulse Oximeter] 100 89 Respiratory Rate 20 20 Blood Pressure [Ri ght Arm] Blood Pressure [Ri ght Upper Arm] 137/71 123/74 Pulse Oximetry 99 99 99 Oxygen Delivery Me thod Room Air Room Air 04/06/24 00:29 04/06/24 00:29 04/06/24 00:38 Temperature 98.5 F 98.5 F Pulse Rate [Pulse Oximeter] 88 Pulse Rate [Right Pulse Oximeter] 89 Respiratory Rate 16 20 Blood Pressure [Ri ght Arm] 133/75 Blood Pressure [Ri ght Upper Arm] 123/74 Pulse Oximetry 100 100 Oxygen Delivery Me thod Room Air Room Air 04/06/24 03:35 04/06/24 07:00 Temperature 97.7 F Pulse Rate [Pulse Oximeter] 78 90 Pulse Rate [Right Pulse Oximeter] Respiratory Rate 16 18 Blood Pressure [Ri ght Arm] 125/80 111/70 Blood Pressure [Ri ght Upper Arm] Pulse Oximetry 99 99 Oxygen Delivery Me thod Room Air Room Air Labs Labs: Laboratory Results - last 24 hr 04/05/24 04/05/24 04/06/24 20:56 23:30 02:18 WBC 9.38 RBC 4.29 Hgb 12.8 Hct 39.1 MCV 91 MCH 30 MCHC 33 RDW Coeff of Latasha 11.9 Plt Count 264 Neut % (Auto) 48.4 Lymph % (Auto) 44.1 H [place] % (Auto) 6.6 Eos % (Auto) 0.5 Baso % (Auto) 0.3 Neut # (Auto) 4.53 Lymph # (Auto) 4.10 H [place] # (Auto) 0.60 Eos # (Auto) 0.05 Baso # (Auto) 0.03 Abs Immat Gran (auto) 0.01 Imm/Tot Granulo (auto) 0.1 Sodium 136 Potassium 3.2 L Chloride 104 Carbon Dioxide 22 Anion Gap 10 BUN 6 Creatinine 0.6 Estimated Creat Clear 132.27 Estimated GFR 127 Glucose 123 H Lactate 2.9 H 0.7 Calcium 9.5 Total Bilirubin < 0.1 L Direct Bilirubin 0.0 AST 24 ALT 13 Alkaline Phosphatase 50 C-Reactive Protein 0.7 Total Protein 7.4 Albumin 4.4 Lipase 90 Urine Color Yellow Urine Appearance Clear Urine pH >= 9.0 H Ur Specific [place] 1.015 Urine Protein 2+ A Urine Glucose (UA) Negative Urine Ketones Negative Urine Blood Negative Urine Nitrite Negative Urine Bilirubin Negative Urine Urobilinogen 0.2 Ur Leukocyte Esterase Negative Urine RBC 0-2 Urine WBC 0-2 Ur Squamous Epith Cells Few Urine Bacteria None Urine HCG, Qual Negative 04/06/24 08:56 WBC 6.60 RBC 4.20 Hgb 12.5 Hct 38.7 MCV 92 MCH 30 MCHC 32 RDW Coeff of Latasha 12.0 Plt Count 226 Neut % (Auto) 62.3 Lymph % (Auto) 30.8 [place] % (Auto) 6.5 Eos % (Auto) 0.2 Baso % (Auto) 0.2 Neut # (Auto) 4.12 Lymph # (Auto) 2.03 [place] # (Auto) 0.40 Eos # (Auto) 0.01 Baso # (Auto) 0.01 Abs Immat Gran (auto) 0.00 Imm/Tot Granulo (auto) 0.0 Sodium 138 Potassium 4.0 Chloride 107 Carbon Dioxide 26 Anion Gap 5 L BUN 2 L Creatinine 0.6 Estimated Creat Clear 138.17 Estimated GFR 127 Glucose 82 Lactate 0.6 Calcium 8.8 Total Bilirubin 0.4 Direct Bilirubin AST 38 H ALT 27 Alkaline Phosphatase 51 C-Reactive Protein Total Protein 6.6 Albumin 3.7 Lipase Urine Color Urine Appearance Urine pH Ur Specific [place] Urine Protein Urine Glucose (UA) Urine Ketones Urine Blood Urine Nitrite Urine Bilirubin Urine Urobilinogen Ur Leukocyte Esterase Urine RBC Urine WBC Ur Squamous Epith Cells Urine Bacteria Urine HCG, Qual
--- NOTE | 2024-04-06 14:46 | PC.NURSE ---
End of Shift: The patient is pleasant and cooperates with cares, although quite fatigued due to admission being so late. No reports of abdominal pain this shift. NPO for HIDA scan/ until surgical consult. Up independently. Instructed the patient to call if the patient starts to feel sick again. Rosalee EPPS BSN
--- NOTE | 2024-04-06 14:53 | PM.GSCN ---
History of Present Illness Consult details Date Seen: 04/06/24 Consult date: 04/06/24 Narrative: Patient presented to the emergency department with severe epigastric abdominal pain. His started around 7:00 a.m. last night. Was in her upper abdomen but then radiated around the sides to her back. It was ?the most severe pain of my life?. She states that she was on all fours ?wailing from the pain. She has never had pain like this before. She does not think anything brought it on. She had eaten dinner about 2 hours earlier, leak and potato soup. She did report some numbness of her hands and face during the episode. Some associated nausea. She did have a loose stool, but denies any diarrhea or constipation. She has never had abdominal Since being admitted to the hospital she has had resolution of her pain. She feels hungry currently. Review of Systems Status of ROS: Reports: 10 or more systems reviewed and unremarkable except as noted in History and below [facility] Medical History (Updated 04/06/24 @ 13:08 by Amy Moctezuma MD) Anxiety ?F41.9 - Anxiety disorder, unspecified (ICD-10) Social History What is your current living situation?: I presently have a place to live Problems where you live: no known problems Problems where you live details: no known problems In the past 12 months, utilities in danger of being shut off: no In the past 12 mos, have been you worried that your food would run out before you had money to buy more?: never true In the past 12 mos, the food you bought just didn't last and you didn't have money to buy more?: never true Smoking Status: Never smoker Do you use any of these nicotine containing products: None Second hand tobacco smoke exposure: No How often do you have a drink containing alcohol: never How often do you have six or more drinks on one occasion: Never AUDIT-C Alcohol total score: 0 Non-prescribed substance use: denies use Caffeine: Yes How often does anyone, including family, friends and others, physically hurt you: never How often does anyone, including family, friends and others, insult or talk down to you: never How often does anyone, including family, friends and others, threaten you with harm: never How often does anyone, including family, friends and others, scream or curse at you: never service: No Meds Home Medications and Allergies Home Medications ?Medication ?Instructions ?Recorded ?Confirmed ?Type escitalopram oxalate 10 mg tablet 10 mg PO DAILY 06/18/23 04/05/24 History norethindrone 1.5 mg-ethinyl 1 tab PO DAILY 06/18/23 04/05/24 History estradiol 30 mcg(21)/iron 75 mg(7) tablet (Patricia Fe 1.5/30 (28)) escitalopram oxalate 5 mg tablet 5 mg PO DAILY 04/05/24 04/05/24 History Allergies Allergy/AdvReac Type Severity Reaction Status Date / Time oxycodone (From Percocet) AdvReac Intermediate Nausea/Vomi Verified 04/05/24 20:34 ting Exam Narrative: Exam Narrative: General: Alert and oriented, no acute distress Respiratory: Equal breath rise bilaterally, maintained on room air CV: Well perfused Abdomen: Soft, nontender and nondistended. Const: Vital Signs, click to edit/add: Vital Signs - 24 hr 04/05/24 20:31 04/05/24 20:37 04/05/24 23:58 Temperature 98.5 F 98.5 F Pulse Rate [Pulse Oximeter] Pulse Rate [Right Pulse Oximeter] 100 89 Respiratory Rate 20 20 Blood Pressure [Ri ght Arm] Blood Pressure [Ri ght Upper Arm] 137/71 123/74 Pulse Oximetry 99 99 99 Oxygen Delivery Me thod Room Air Room Air 04/06/24 00:29 04/06/24 00:29 04/06/24 00:38 Temperature 98.5 F 98.5 F Pulse Rate [Pulse Oximeter] 88 Pulse Rate [Right Pulse Oximeter] 89 Respiratory Rate 16 20 Blood Pressure [Ri ght Arm] 133/75 Blood Pressure [Ri ght Upper Arm] 123/74 Pulse Oximetry 100 100 Oxygen Delivery Nj thod Room Air Room Air 04/06/24 03:35 04/06/24 07:00 04/06/24 11:00 Temperature 97.7 F 98.2 F Pulse Rate [Pulse Oximeter] 78 90 94 Pulse Rate [Right Pulse Oximeter] Respiratory Rate 16 18 16 Blood Pressure [Ri ght Arm] 125/80 111/70 120/73 Blood Pressure [Ri ght Upper Arm] Pulse Oximetry 99 99 99 Oxygen Delivery Nj thod Room Air Room Air Room Air Results Labs Labs: Abnormal lab results 04/05/24 04/06/24 Range/Units 20:56 08:56 Lymph % (Auto) 44.1 H (20-44) % Lymph # (Auto) 4.10 H (0.90-2.90) K/uL Potassium 3.2 L (3.6-5.1) mmol/L Anion Gap 5 L (7-15) mEq/L BUN 2 L (5-24) mg/dL Glucose 123 H (60-115) mg/dL Lactate 2.9 H (0.5-1.9) mmol/L Total Bilirubin < 0.1 L (0.1-1.5) mg/dL AST 38 H (12-35) U/L Urine pH >= 9.0 H (5.0-8.5) Urine Protein 2+ A (Negative) Diabetes panel 04/05/24 04/06/24 Range/Units 20:56 08:56 Sodium 136 138 (135-149) mmol/L Potassium 3.2 L 4.0 (3.6-5.1) mmol/L Chloride 104 107 (96-114) mmol/L Carbon Dioxide 22 26 (20-32) mmol/L BUN 6 2 L (5-24) mg/dL Creatinine 0.6 0.6 (0.5-1.5) mg/dL Glucose 123 H 82 (60-115) mg/dL Calcium 9.5 8.8 (8.4-10.6) mg/dL AST 24 38 H (12-35) U/L ALT 13 27 (4-35) U/L Alkaline Phosphatase 50 51 (40-150) U/L Total Protein 7.4 6.6 (6.0-8.3) g/dL Albumin 4.4 3.7 (3.3-5.0) g/dL Calcium panel 04/05/24 04/06/24 Range/Units 20:56 08:56 Calcium 9.5 8.8 (8.4-10.6) mg/dL Albumin 4.4 3.7 (3.3-5.0) g/dL Pituitary panel 04/05/24 04/06/24 Range/Units 20:56 08:56 Sodium 136 138 (135-149) mmol/L Potassium 3.2 L 4.0 (3.6-5.1) mmol/L Chloride 104 107 (96-114) mmol/L Carbon Dioxide 22 26 (20-32) mmol/L BUN 6 2 L (5-24) mg/dL Creatinine 0.6 0.6 (0.5-1.5) mg/dL Glucose 123 H 82 (60-115) mg/dL Calcium 9.5 8.8 (8.4-10.6) mg/dL Adrenal panel 04/05/24 04/06/24 Range/Units 20:56 08:56 Sodium 136 138 (135-149) mmol/L Potassium 3.2 L 4.0 (3.6-5.1) mmol/L Chloride 104 107 (96-114) mmol/L Carbon Dioxide 22 26 (20-32) mmol/L BUN 6 2 L (5-24) mg/dL Creatinine 0.6 0.6 (0.5-1.5) mg/dL Glucose 123 H 82 (60-115) mg/dL Calcium 9.5 8.8 (8.4-10.6) mg/dL Total Bilirubin < 0.1 L 0.4 (0.1-1.5) mg/dL AST 24 38 H (12-35) U/L ALT 13 27 (4-35) U/L Alkaline Phosphatase 50 51 (40-150) U/L Total Protein 7.4 6.6 (6.0-8.3) g/dL Albumin 4.4 3.7 (3.3-5.0) g/dL All other labs normal. Imaging Abdomen CT scan report/results: report reviewed and image reviewed Abdominal ultrasound report/results: report reviewed and image reviewed Progress Note:A&P Assessment and plan (1) Abdominal pain, epigastric: Status: Acute Assessment and Plan: Patient is a 28-year-old female who presents with a single episode of epigastric abdominal pain. Workup was obtained with ultrasound demonstrating some shadowing, sludge versus polyp. HIDA scan was done and is slightly decreased at 28%. CT scan showed some hepatomegaly. Normal WBC, LFTs and lipase. Clinical workup is suspicious for biliary colic versus biliary dyskinesia. I had a detailed conversation with the patient regarding the diagnosis of biliary dyskinesia. We discussed the treatment options including observation with diet modification and laparoscopic cholecystectomy. We discussed the risks of surgery (including but not limited to) the risks of bleeding, infection, injury to other structures in the abdomen including bile duct injury, bile leak and conversion to an open operation. We discussed the possibility that the patient's pain not improve with surgery. We discussed the possibility of permanent post-operative diarrhea that may require medical management. Additionally, the conceivably of complications requiring additional surgery or further hospitalization were also discussed including the risks of CT, respiratory failure, stroke and blood clots. The patient voiced an understanding of our conversation, had the opportunity to ask questions, agreed to accept the risks of surgery and asked that we proceed with surgery. At this time the patient has had resolution of her pain and is feeling hungry. It is reasonable to do a trial diet and have the patient discharged on a low-fat diet. Would also send the patient home with pain medicines. She is interested in scheduling surgery for possibly this Friday, so my partner Dr. Marcus will see her and discuss scheduling this.
--- NOTE | 2024-04-06 16:26 | P.DS_ITS ---
DS: Providers Provider Date Seen: 04/06/24 Date of admission: 04/06/24 00:26 Primary care physician: Not a Local Provider Admitting Clinician: Joe Sorensen MD Attending Physician on discharge: Jenifer Mcdaniels MD Date of Discharge: 04/06/24 DS: Diagnosis Discharge Diagnosis (1) Abdominal pain, epigastric: Status: Acute Problem details: - atypical biliary colic vs biliary dyskinesia vs dyspepsia vs gastritis - decreased gallbladder EF on HIDA scan, possible reflux - tolerated low fat diet - I spoke with Dr. Echavarria and Dr. Marcus. Patient decided against surgery at this time. Will discharge home. If symptoms of that intensity recur, present for reevalution DS: Summary Hospital Course Hospital Course: Penny was admitted to the hospital last night for severe epigastric abdominal pain. On admission, lactate elevated. Normal white count, LFTs, lipase. Imaging revealed hepatomegaly on CT scan, a focal area of echogenicity along gallbladder wall, polyp vs sludge. HIDA scan obtained this morning, EF 28%. Penny continues to have mild abdominal pain this morning, generalized. She has had no nausea or vomiting, She is tolerating a low fat diet without worsening pain. Drs. Echavarria and Amrit from general surgery have seen this patient and plan is for no surgery at this time. She has not needed opioid pain medication since 2 or 3 am. Discharge home. Time Spent with Patient Time attestation: Total time spent providing and/or coordinating discharge services: Exam Narrative: Exam Narrative: See Dr. Moctezuma's progress note from today 04/06/24. Const: Vital Signs, click to edit/add: Vital Signs - 24 hr 04/05/24 20:31 04/05/24 20:37 04/05/24 23:58 Temperature 98.5 F 98.5 F Pulse Rate [Pulse Oximeter] Pulse Rate [Right Pulse Oximeter] 100 89 Respiratory Rate 20 20 Blood Pressure [Ri ght Arm] Blood Pressure [Ri ght Upper Arm] 137/71 123/74 Pulse Oximetry 99 99 99 Oxygen Delivery Me thod Room Air Room Air 04/06/24 00:29 04/06/24 00:29 04/06/24 00:38 Temperature 98.5 F 98.5 F Pulse Rate [Pulse Oximeter] 88 Pulse Rate [Right Pulse Oximeter] 89 Respiratory Rate 16 20 Blood Pressure [Ri ght Arm] 133/75 Blood Pressure [Ri ght Upper Arm] 123/74 Pulse Oximetry 100 100 Oxygen Delivery Me thod Room Air Room Air 04/06/24 03:35 04/06/24 07:00 04/06/24 11:00 Temperature 97.7 F 98.2 F Pulse Rate [Pulse Oximeter] 78 90 94 Pulse Rate [Right Pulse Oximeter] Respiratory Rate 16 18 16 Blood Pressure [Ri ght Arm] 125/80 111/70 120/73 Blood Pressure [Ri ght Upper Arm] Pulse Oximetry 99 99 99 Oxygen Delivery Me thod Room Air Room Air Room Air 04/06/24 15:00 04/06/24 15:40 Temperature 98.8 F Pulse Rate [Pulse Oximeter] 81 81 Pulse Rate [Right Pulse Oximeter] Respiratory Rate 16 16 Blood Pressure [Ri ght Arm] 128/77 Blood Pressure [Ri ght Upper Arm] Pulse Oximetry 100 Oxygen Delivery Me thod Room Air DS: Data Data Completed and Pending Completed studies during hospitalization: Ordering Physician: Liliana Antoine M.D. Date of Service: 04/05/24 Procedure(s): US abdomen limited Accession Number(s): [id number] cc: Provider,Not a Local; Liliana Antoine M.D.~ For Patients: As a result of the Century Cures Act, medical imaging exams and procedure reports are released immediately into your electronic medical record. You may view this report before your referring provider. If you have questions, please contact your health care provider. INDICATION: Right upper quadrant abdominal pain. TECHNIQUE: Ultrasound abdomen limited. Sonographic images of the right upper quadrant were obtained using arredondo-scale and color Doppler images. COMPARISON: None. FINDINGS: Liver: Normal in size and echotexture. No suspicious masses. No intrahepatic biliary ductal dilatation. Gallbladder: Focal area of echogenicity along the gallbladder wall. No stones. Normal wall thickness. No pericholecystic fluid. Negative sonographic Stone`s sign. Common bile duct: 3 mm. Pancreas: Unremarkable. Right kidney: Normal in size. Normal echotexture and cortex. No suspicious masses or hydronephrosis. Vasculature: Proximal abdominal aorta and IVC are unremarkable. IMPRESSION: 1. Focal area of echogenicity along the gallbladder wall, which may represent a small polyp versus tumefactive sludge. 2. Otherwise unremarkable right upper quadrant ultrasound. Dictated by Oli Bagley MD @ 04/05/2024 10:04:36 PM (Electronically Signed) Ordering Physician: Liliana Antoine M.D. Date of Service: 04/05/24 Procedure(s): CT abdomen pelvis w con Accession Number(s): [id number] cc: Provider,Not a Local; Liliana Antoine M.D.~ For Patients: As a result of the Cures Act, medical imaging exams and procedure reports are released immediately into your electronic medical record. You may view this report before your referring provider. If you have questions, please contact your health care provider. INDICATION: Severe upper abdominal pain. TECHNIQUE: CT abdomen and pelvis acquired with 64 cc Isovue 370 IV contrast. COMPARISON: Limited abdominal ultrasound 04/05/2024. FINDINGS: Lower chest: Unremarkable. Liver: Enlarged liver. No suspicious masses. Gallbladder and bile ducts: Unremarkable. No stones or inflammation. No biliary ductal dilatation. Spleen: Unremarkable. Normal in size. No masses. Adrenal glands: Unremarkable. No nodules. Pancreas: Unremarkable. No mass or inflammation. Kidneys: Unremarkable. No suspicious masses, stones, or hydronephrosis. GI tract: Unremarkable. Normal in caliber. No evidence of obstruction. Normal appendix. Lymph nodes: No lymphadenopathy. Vasculature: Unremarkable. Omentum/Peritoneum/Abdominal Wall: Unremarkable. No free air or significant free fluid. Pelvis: Unremarkable. Bones: Unremarkable for age. IMPRESSION: 1. Hepatomegaly. 2. Otherwise no acute abdominal or pelvic abnormality. Please note that all CT scans at this facility use dose modulation, iterative reconstruction, and/or weight-based dosing when appropriate to reduce radiation dose to as low as reasonably achievable. Dictated by Oli Bagley MD @ 04/05/2024 11:12:59 PM (Electronically Signed) Ordering Physician: Amy Moctezuma M.D. Date of Service: 04/06/24 Procedure(s): NM hepatobiliary w pharm Accession Number(s): [id number] cc: Amy Moctezuma M.D.; Provider,Not a Local~ For Patients: As a result of the Cures Act, medical imaging exams and procedure reports are released immediately into your electronic medical record. You may view this report before your referring provider. If you have questions, please contact your health care provider. Indication: Abdominal pain Technique: Nuclear medicine hepatobiliary scan with gallbladder ejection fraction after the intravenous administration of 4.8 millicuries technetium 99 M Mebrofenin and 0.2 micrograms of CCK. STAT! Comparison: Right upper quadrant ultrasound 04/05/2024 Findings: Normal hepatic extraction and excretion of the radiopharmaceutical with prompt appearance of the common bile duct followed by the gallbladder and small bowel. Mild to moderate enterogastric reflux is noted. Visually mildly decreased gallbladder contraction is identified. Calculated gallbladder ejection fraction is 28 percent. Impression: 1. No acute findings. 2. Mild gallbladder dysfunction, most commonly caused by chronic cholecystitis. 3. [id number] enterogastric reflux, correlate for alkaline gastritis. Dictated by Jake Klein MD @ 04/06/2024 10:56:50 AM (Electronically Signed) Labs on day of discharge: Labs from last 24 hours 04/06/24 04/06/24 04/05/24 08:56 02:18 23:30 WBC 6.60 RBC 4.20 Hgb 12.5 Hct 38.7 MCV 92 MCH 30 MCHC 32 RDW Coeff of Latasha 12.0 Plt Count 226 Neut % (Auto) 62.3 Lymph % (Auto) 30.8 [place] % (Auto) 6.5 Eos % (Auto) 0.2 Baso % (Auto) 0.2 Neut # (Auto) 4.12 Lymph # (Auto) 2.03 [place] # (Auto) 0.40 Eos # (Auto) 0.01 Baso # (Auto) 0.01 Abs Immat Gran (auto) 0.00 Imm/Tot Granulo (auto) 0.0 Sodium 138 Potassium 4.0 Chloride 107 Carbon Dioxide 26 Anion Gap 5 L BUN 2 L Creatinine 0.6 Estimated Creat Clear 138.17 Estimated GFR 127 Glucose 82 Lactate 0.6 0.7 Calcium 8.8 Total Bilirubin 0.4 Direct Bilirubin AST 38 H ALT 27 Alkaline Phosphatase 51 C-Reactive Protein Total Protein 6.6 Albumin 3.7 Lipase Urine Color Urine Appearance Urine pH Ur Specific [place] Urine Protein Urine Glucose (UA) Urine Ketones Urine Blood Urine Nitrite Urine Bilirubin Urine Urobilinogen Ur Leukocyte Esterase Urine RBC Urine WBC Ur Squamous Epith Cells Urine Bacteria Urine HCG, Qual Negative EBV EA Restrict+Diffuse Pending 11/25/24 20:56 WBC 9.38 RBC 4.29 Hgb 12.8 Hct 39.1 MCV 91 MCH 30 MCHC 33 RDW Coeff of [place] 11.9 Plt Count 264 Neut % (Auto) 48.4 Lymph % (Auto) 44.1 H [place] % (Auto) 6.6 Eos % (Auto) 0.5 Baso % (Auto) 0.3 Neut # (Auto) 4.53 Lymph # (Auto) 4.10 H [place] # (Auto) 0.60 Eos # (Auto) 0.05 Baso # (Auto) 0.03 Abs Immat Gran (auto) 0.01 Imm/Tot Granulo (auto) 0.1 Sodium 136 Potassium 3.2 L Chloride 104 Carbon Dioxide 22 Anion Gap 10 BUN 6 Creatinine 0.6 Estimated Creat Clear 132.27 Estimated GFR 127 Glucose 123 H Lactate 2.9 H Calcium 9.5 Total Bilirubin < 0.1 L Direct Bilirubin 0.0 AST 24 ALT 13 Alkaline Phosphatase 50 C-Reactive Protein 0.7 Total Protein 7.4 Albumin 4.4 Lipase 90 Urine Color Yellow Urine Appearance Clear Urine pH >= 9.0 H Ur Specific [place] 1.015 Urine Protein 2+ A Urine Glucose (UA) Negative Urine Ketones Negative Urine Blood Negative Urine Nitrite Negative Urine Bilirubin Negative Urine Urobilinogen 0.2 Ur Leukocyte Esterase Negative Urine RBC 0-2 Urine WBC 0-2 Ur Squamous Epith Cells Few Urine Bacteria None Urine HCG, Qual EBV EA Restrict+Diffuse Discharge Plan Discharge Disposition: Home, Self-Care Date of Admission: 04/06/24 00:26 Attending Provider on Discharge: Jenifer Mcdaniels Primary Care Provider: Provider,Not a Local Discharge Medications: Continued escitalopram oxalate 10 mg tablet 10 mg PO DAILY norethindrone-e.estradiol-iron [Patricia Fe 1.5/30 (28)] 1.5 mg-30 mcg (21)/75 mg (7) tablet 1 tab PO DAILY escitalopram oxalate 5 mg tablet 5 mg PO DAILY Discharge Orders: Discharge Order (Routine); Ordered 04/06/24 Ordered By: Jenifer Mcdaniels Additional Instructions: If symptoms recur, present for reevaluation. Call Dr. Marcus's office if you decide to have cholecystectomy. See PCP as needed for mild ongoing symptoms. You may use acetaminophen or ibuprofen over the counter for pain. Activity Level: Activity as Tolerated Discharge Diet: Low Fat/Low Cholesterol Follow Up Appointments: Willa Shea MD [Staff Physician] - () Provider,Not a Local [Primary Care Provider] - Forms: [employer] Info Instructions
== END 2024-04-06 18:20 | disposition home or self-care (01) ==
LOC: ED 04-06 00:26 → MEDSURG 04-06 00:28
PROVIDERS: Family Medicine; Admitting Provider Student in an Organized Health Care Education/Training Program; Emergency Provider Family Medicine; Visit Provider Student in an Organized Health Care Education/Training Program
DX: R10.13 Epigastric pain (principal); R16.0 Hepatomegaly, not elsewhere classified; Z83.79 Family history of other diseases of the digestive system
CPT/HCPCS: 36415; 74177; 76705; 78227; 80053; 81001; 81025; 82248; 83605; 83690; 85025; 86140; 86663; 94761; 96374; 96375; 99285; A9270; A9537; G0378; J1885; J2405; J2470; J2805; J3010; J7030; Q9967

== ENCOUNTER 2024-05-02 23:35 | Emergency (ER) | payer OTHER, SELFPAY ==
[2024-05-02 23:36] VITALS: BP 108/69; PULSE 89; RESP 20; TEMP 35.7; O2SAT 100; BMI 21.1
--- NOTE | 2024-05-03 00:22 | ED.ABDPAIN ---
HPI - Abdominal Pain General Date Seen: 05/03/24 Chief Complaint: Abdominal Pain Stated Complaint: abdominal pain Time Seen by Provider: 05/03/24 00:30 Source: patient and family Mode of arrival: ambulatory Limitations: no limitations History of Present Illness HPI narrative: Very nice 28-year-old female presents here for evaluation of epigastric abdominal pain that she has had since 03/10 tonight. She describes the pain initially as a 10 but now is decreased approximately 4/10. There was radiation to her back associated with this, and also feeling when she takes a deep breath in that it hurt. She did take 2 Tylenol Extra Strength and she thinks this significantly helped her discomfort. She did not have any nausea vomiting, she had a couple loose stools. Associated with this she is saying that she did have some soup earlier, approximately an hour hour half earlier and some bread with a little bit of butter. She was recently hospitalized here at the end of March for abdominal pain, underwent a workup, with a normal CT scan, ultrasound showed possibly some sludge in her gallbladder, and a follow-up HIDA scan showed low normal function of her gallbladder. There also showed some reflux associated with this since this hospitalization episode occurred she has been really pain-free but has been really watching her diet very closely. Denies alcohol, does have a history in the past of abdominal issues, she talks of distress and anxiety, did see [facility] when she was in her teens for similar type episodes. Although not nearly as bad. Denies being . Here today with her father. elicited complaint: abdominal pain Onset (ago): hour(s) Pain Consistency: colicky Location: epigastric Severity: severe Quality: cramping, stabbing and sharp Radiation: bilateral flank Migration to: no migration Exacerbating factors: rest Relieving factors: medication Context: history of similar episodes Associated symptoms: denies other symptoms Treatments prior to arrival: other Related Data Patient : No Home Medications ?Medication ?Instructions ?Recorded ?Confirmed escitalopram oxalate 10 mg tablet 10 mg PO DAILY 06/18/23 04/05/24 norethindrone 1.5 mg-ethinyl 1 tab PO DAILY 06/18/23 04/05/24 estradiol 30 mcg(21)/iron 75 mg(7) tablet (Patricia Fe 1.5/ (28)) escitalopram oxalate 5 mg tablet 5 mg PO DAILY 04/05/24 04/05/24 Allergies Allergy/AdvReac Type Severity Reaction Status Date / Time oxycodone (From Percocet) AdvReac Intermediate Nausea/Vomi Verified 04/05/24 20:34 ting Review of Systems Status of ROS Reports: 10 or more systems reviewed and unremarkable except as noted in History and below PFSH PFS Medical History Anxiety ?F41.9 - Anxiety disorder, unspecified (ICD-10) Social History What is your current living situation?: I presently have a place to live Problems where you live: no known problems Problems where you live details: no known problems In the past 12 months, utilities in danger of being shut off: no In past 12 months, lack of transportation kept you from medical appts, meetings, work, or getting things needed for daily living: no In the past 12 mos, have been you worried that your food would run out before you had money to buy more?: never true In the past 12 mos, the food you bought just didn't last and you didn't have money to buy more?: never true Smoking Status: Never smoker Do you use any of these nicotine containing products: None Second hand tobacco smoke exposure: No How often do you have a drink containing alcohol: never How often do you have six or more drinks on one occasion: Never AUDIT-C Alcohol total score: 0 Non-prescribed substance use: denies use Caffeine: Yes How often does anyone, including family, friends and others, physically hurt you: never How often does anyone, including family, friends and others, insult or talk down to you: never How often does anyone, including family, friends and others, threaten you with harm: never How often does anyone, including family, friends and others, scream or curse at you: never service: No Exam Narrative: Exam Narrative: On examination in room 5 she is in no apparent distress very nice lady. Speaking to me normally in no visible pain her pupils are equal round reactive to light, conjunctivae were little bit pale, oropharynx is otherwise normal her neck is supple excellent range of motion with no lymphadenopathy chest is good air entry bilaterally with no splinting wheezes crackles noted, heart sounds are normal her abdomen shows very mild discomfort in the epigastric region may be more right than left. Bowel sounds are normal scaphoid abdomen no CVA tenderness, and definitely no peritoneal signs skin reveals no petechiae rashes and she moves all extremities independently and well. Const: Vital Signs, click to edit/add: Vital Signs - 24 hr 05/02/24 23:36 Temperature 96.3 F L Pulse Rate [Left P ulse Oximeter] 89 Respiratory Rate 20 Blood Pressure [Ri ght Upper Arm] 108/69 Pulse Oximetry 100 Oxygen Delivery Me thod Room Air Documenting provider has reviewed patient's vital signs: yes Course Course ED Course: She is doing better, she said her abdominal discomfort is very tolerable, her laboratory work is all within normal parameters with exception of her hemoglobin being a little low, as she is a vegetarian I wonder she is also iron deficient, she I do recommend that she follow up with her provider in get iron studies to see if she needs some supplementation. Return here if signs symptoms of worsening, and start the Prilosec. Vital Signs Vital signs: Initial Vital Signs Temperature 96.3 F L 05/02/24 23:36 Temperature Source Temporal Artery Scan 05/02/24 23:36 Pulse Rate 89 05/02/24 23:36 Pulse Rhythm Regular 05/02/24 23:36 Respiratory Rate 20 05/02/24 23:36 Blood Pressure 108/69 05/02/24 23:36 Blood Pressure Mean 82 05/02/24 23:36 Blood Pressure Position Sitting 05/02/24 23:36 Pulse Oximetry 100 05/02/24 23:36 Oxygen Delivery Method Room Air 05/02/24 23:36 Vital Signs Temperature 96.3 F L 05/02/24 23:36 Pulse Rate 89 05/02/24 23:36 Respiratory Rate 20 05/02/24 23:36 Blood Pressure 108/69 05/02/24 23:36 Pulse Oximetry 100 05/02/24 23:36 Oxygen Delivery Method Room Air 05/02/24 23:36 Temperature 96.3 F L 05/02/24 23:36 Pulse Rate 89 05/02/24 23:36 Respiratory Rate 20 05/02/24 23:36 Blood Pressure 108/69 05/02/24 23:36 Pulse Oximetry 100 05/02/24 23:36 Oxygen Delivery Method Room Air 05/02/24 23:36 MDM - Abdominal Pain MDM Narrative Medical decision making narrative: During the evaluation of this patient I considered multiple differential diagnosis including life-threatening differentials which are appendicitis, aortic aneurysm, mesenteric ischemia, bowel perforation, ectopic , volvulus and bowel obstruction, other differential diagnosis include but are not limited to inflammatory bowel disease, cholecystitis, pancreatitis, hepatitis, gastritis, GERD, diverticulitis, peptic ulcer disease, pyelonephritis/UTI, renal colic/stone, pelvic inflammatory disease, cervicitis, endometritis, intrauterine , dysfunctional uterine bleeding, ovarian cyst/torsion, spontaneous as well as other etiologies I had a long discussion with her and her father, her pain is improved here with her choice of the Tylenol, given her examination here in recent workup, I think it would be reasonable to try some laboratory work, and then consider other possible etiologies associated with this. Medical Records Attestation: I reviewed the patient's medical records. Medical records narrative: Reviewed epic link also. Lab Data Attestation: I reviewed the patient's lab results. Labs: Lab Results 05/03/24 05/03/24 Range/Units 00:25 01:00 WBC 6.71 (4.50-11.00) K/uL RBC 3.89 L (4.00-5.20) m/uL Hgb 11.7 L (12.0-16.0) gm/dL Hct 35.5 (33.0-51.0) % MCV 91 (80-100) fL MCH 30 (26-34) pg MCHC 33 (32-36) gm/dL RDW Coeff of Latasha 11.9 (11.5-15.5) % Plt Count 193 (140-440) K/uL Neut % (Auto) 49.7 (42.0-72.0) % Lymph % (Auto) 41.4 (20-44) % [place] % (Auto) 7.6 (0.0-11.0) % Eos % (Auto) 0.3 (0.0-7.0) % Baso % (Auto) 0.3 (0.0-3.0) % Neut # (Auto) 3.33 (1.7-7.0) K/uL Lymph # (Auto) 2.78 (0.90-2.90) K/uL [place] # (Auto) 0.50 (0.00-0.90) K/UL Eos # (Auto) 0.02 (0.00-0.50) K/uL Baso # (Auto) 0.02 (0.00-0.30) K/uL Abs Immat Gran (auto) 0.05 (0.00-0.30) K/uL Imm/Tot Granulo (auto) 0.7 % Sodium (135-149) mmol/L Potassium 3.4 L (3.6-5.1) mmol/L Chloride (96-114) mmol/L Carbon Dioxide 23 (20-32) mmol/L Anion Gap 6 L (7-15) mEq/L BUN 6 (5-24) mg/dL Creatinine 0.6 (0.5-1.5) mg/dL Estimated Creat Clear 137.35 Estimated GFR 127 ml/min Glucose (60-115) mg/dL Calcium (8.4-10.6) mg/dL Total Bilirubin 0.3 (0.1-1.5) mg/dL Direct Bilirubin 0.1 (0.0-0.5) mg/dL AST 29 (12-35) U/L ALT 18 (4-35) U/L Alkaline Phosphatase 52 (40-150) U/L C-Reactive Protein < 0.5 L (0.5-1.0) mg/dL Total Protein 6.3 (6.0-8.3) g/dL Albumin 3.6 (3.3-5.0) g/dL Amylase 71 (18-89) U/L Lipase 75 (23-300) U/L Procalcitonin < 0.03 L (<0.50) ng/mL Urine Color Yellow (Yellow) Urine Appearance Clear (Clear) Urine pH 8.0 (5.0-8.5) Ur Specific [place] 1.020 (1.000-1.030) Urine Protein Trace A (Negative) Urine Glucose (UA) Negative (Negative) Urine Ketones Negative (Negative) Urine Blood Negative (Negative) Urine Nitrite Negative (Negative) Urine Bilirubin Negative (Negative) Urine Urobilinogen 0.2 (0.2-1.0) Ur Leukocyte Esterase Negative (Negative) Urine RBC 0-2 (0-2) Urine WBC 0-2 (0-5) Ur Squamous Epith Cells Few (None-Few) Urine Bacteria Few A (None) Urine HCG, Qual Negative (Negative) Discharge Plan Discharge Clinical Impression: Abdominal pain, epigastric, Dyspepsia Patient Disposition: Home w/ Parent or Adult Condition: Stable Instructions: Abdominal Pain (ED), Epigastric Pain (ED) Additional Instructions: I think it would be reasonable to start her on Prilosec, [id number] 20 mg a day, take this for 2 weeks and see if it improves the situation. Considered a low-fat diet, your hemoglobin is also low at 11.7. I wonder if your iron is also low, and would ask you to follow-up with your primary care physician for this. Return if increasing abdominal pain fevers chills or sweats. Activity Level: Light activity Prescriptions: No Action escitalopram oxalate 10 mg tablet 10 mg PO DAILY norethindrone-e.estradiol-iron [Patricia Fe 1.5/30 (28)] 1.5 mg-30 mcg (21)/75 mg (7) tablet 1 tab PO DAILY escitalopram oxalate 5 mg tablet 5 mg PO DAILY Follow Up/Referrals: Provider,Not a Local [Primary Care Provider] - Stand Alone Forms: [employer] Info Instructions
[2024-05-03 00:31] LABS: Basophils Absolute Auto 0.02 K/uL (0.00-0.30); Basophils Percent Auto 0.3 % (0.0-3.0); Eosinophils Absolute Auto 0.02 K/uL (0.00-0.50); Eosinophils Percent Auto 0.3 % (0.0-7.0); Hematocrit 35.5 % (33.0-51.0); Hemoglobin* 11.7 gm/dL (12.0-16.0); Immature Granulocytes Abs Auto 0.05 K/uL (0.00-0.30); Immature Granulocytes Pct Auto 0.7 %; Lymphocytes Absolute Auto 2.78 K/uL (0.90-2.90); Lymphocytes Percent Auto 41.4 % (20-44); Mean Corpuscular HGB Conc 33 gm/dL (32-36); Mean Corpuscular Hemoglobin 30 pg (26-34); Mean Corpuscular Volume 91 fL (80-100); Monocytes Percent Auto 7.6 % (0.0-11.0); Neutrophils Absolute Auto 3.33 K/uL (1.7-7.0); Neutrophils Percent Auto 49.7 % (42.0-72.0); Platelet Count* 193 K/uL (140-440); RDW Coefficient of Variation % 11.9 % (11.5-15.5); Red Blood Count 3.89 m/uL (4.00-5.20); White Blood Count* 6.71 K/uL (4.50-11.00)
[2024-05-03 00:35] LABS: Slide Review Reflex No
[2024-05-03 00:49] LABS: Albumin* 3.6 g/dL (3.3-5.0)
[2024-05-03 00:52] LABS: Alanine Aminotransferase* 18 U/L (4-35); Alkaline Phosphatase* 52 U/L (40-150); Aspartate Amino Transferase* 29 U/L (12-35); Bilirubin Direct* 0.1 mg/dL (0.0-0.5); Bilirubin Total* 0.3 mg/dL (0.1-1.5); Lipase* 75 U/L (23-300); Total Protein* 6.3 g/dL (6.0-8.3)
[2024-05-03 00:53] LABS: Anion Gap 6 mEq/L (7-15)
[2024-05-03 00:57] LABS: Blood Urea Nitrogen* 6 mg/dL (5-24); Carbon Dioxide* 23 mmol/L (20-32); Creatinine* 0.6 mg/dL (0.5-1.5); Est. Creatinine Clearance* 137.35; Estimated Glomerular Filt Rate 127 ml/min; Potassium* 3.4 mmol/L (3.6-5.1)
[2024-05-03 01:05] LABS: Appearance Urine Clear (Clear); Bilirubin Urine Negative (Negative); Blood Urine Negative (Negative); Color Urine Yellow (Yellow); Glucose Urine Negative (Negative); Ketones Urine Negative (Negative); Leukocyte Esterase Urine Negative (Negative); Nitrite Urine Negative (Negative); Protein Urine Trace (Negative); Urobilinogen Urine 0.2 (0.2-1.0)
[2024-05-03 01:15] LABS: Bacteria Urine Few; RBC Urine 0-2 (0-2); Squamous Epithelial Cell Urine Few (None-Few); Ur HCG Qualitative* Negative (Negative); WBC Urine 0-2 (0-5)
[2024-05-03 01:23] LABS: Amylase* 71 U/L (18-89)
[2024-05-03 01:36] LABS: C Reactive Protein* < 0.5 mg/dL (0.5-1.0); Procalcitonin* < 0.03 ng/mL (<0.50)
== END 2024-05-03 01:44 | disposition home or self-care (01) ==
PROVIDERS: Emergency Provider Family Medicine
DX: R10.13 Epigastric pain (principal)
CPT/HCPCS: 36415; 80048; 80076; 81001; 81025; 82150; 83690; 84145; 85025; 86140; 87086; 99283; 99284